=== PATIENT | male | born 1945 | race African-American/Black ===

== ENCOUNTER 2017-01-23 12:08 | Inpatient (IN) | payer MEDICARE, OTHER ==
[~2017-01-23] VITALS: Ht 185.4 cm; Wt 138.5 kg
[~2017-01-23 12:08] MED LIST: CALC1TAB PO; CELE200C PO; COLC0.6T34 PO; DIPH25CA58 PO; EZET10TA3 PO; FEBU80TA2 PO; GLIM1TAB2 PO; GLUC-12 PO; HYDR-2762 PO; LOSA100T2 PO; METO200T3 PO; MULT-246 PO; OMEG1CAP61 PO; OXYC30TA21 PO; TAMS0.4C2 PO; WARF5TAB PO
[2017-01-23] MEDS ORDERED: FENTANYL PF 100 MCG/2 ML VIAL. IV PRN ×2 (12:45→13:00)
[2017-01-23] MEDS ORDERED: NITROGLYCERIN SUBLINGUAL 0.4 MG BOTTLE OF 25. SL PRN ×3 (12:45→16:15)
--- NOTE | 2017-01-23 12:54 | EKG ---
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
[2017-01-23] MEDS ORDERED: ASPIRIN 81 MG TAB.CHEW PO ONE (13:00)
--- NOTE | 2017-01-23 13:00 | ED.ADGEN ---
Adult General Chief Complaint Chief Complaint: SHORTNESS OF BREATH HPI HPI Patient is a 71 year old man, history of CAD, hypertension, obesity, who presents to the emergency department with a report of an abnormal ECG after being sent from his primary care provider's office. Patient is able to provide a lot of information, states that he was being seen for atypical visit, and had EKG performed, and was told to go immediately to the emergency department for evaluation. Patient states that he has been expressing shortness of breath times time, but is feeling no more short of breath than usual, denies any palpitations, any chest pain, any nausea or vomiting, any weakness emesis or tingling, any recent travel or surgery, history of DVT or PE. He states that he believes he seen by cardiology here [facility], but cannot give additional information. Patient states that his shortness of breath comes it from time to time, but he cannot recall that is triggered by activity or any other inciting events. Noted a mildly tachycardic, heart rate 100-106, with occasional PVCs noted on his ECG. Review of Systems Review of Systems Constitutional: Denies fever or chills. [] Eyes: Denies change in visual acuity. [] HENT: Denies nasal congestion or sore throat. [] Respiratory: Denies cough, complaining of shortness of breath, occasionally. Cardiovascular: Denies chest pain or edema. [] GI: Denies abdominal pain, nausea, vomiting, bloody stools or diarrhea. [] : Denies dysuria. [] Musculoskeletal: Denies back pain or joint pain. [] Integument: Denies rash. [] Neurologic: Denies headache, focal weakness or sensory changes. [] Endocrine: Denies polyuria or polydipsia. [] Lymphatic: Denies swollen glands. [] Psychiatric: Denies depression or anxiety. [] Current Medications Current Medications Current Medications Medications (Trade) Dose Ordered Sig/Andre Start Time Stop Time Status Last Admin Dose Admin Aspirin (Children'S Aspirin) 324 mg 1X ONCE 01/23/17 13:00 01/23/17 13:01 DC 01/23/17 14:03 324 MG Fentanyl Citrate (Fentanyl 2ml Vial) 25 mcg PRN Q15MIN PRN 01/23/17 13:00 01/24/17 12:59 Nitroglycerin (Nitrostat) 0.4 mg PRN Q5MIN PRN 01/23/17 13:00 Allergies Allergies Allergies Coded Allergies Type Severity Reaction Last Updated Verified No Known Drug Allergies 06/05/15 No Physical Exam Physical Exam Constitutional: Well developed, well nourished, no acute distress, non-toxic appearance. [] HENT: Normocephalic, atraumatic, bilateral external ears normal, oropharynx moist, no oral exudates, nose normal. [] Eyes: PERRLA, EOMI, conjunctiva normal, no discharge. [] Neck: Normal range of motion, no tenderness, supple, no stridor. [] Cardiovascular:Heart rate regular rhythm, no murmur [] Lungs & Thorax: Bilateral breath sounds clear to auscultation [] Abdomen: Bowel sounds normal, soft, no tenderness, no masses, no pulsatile masses. [] Skin: Warm, dry, no erythema, no rash. [] Back: No tenderness, no CVA tenderness. [] Extremities: No tenderness, no cyanosis, no clubbing, ROM intact, no edema. [] Neurologic: Alert and oriented X 3, normal motor function, normal sensory function, no focal deficits noted. [] Psychologic: Affect normal, judgement normal, mood normal. [] Current Patient Data Vital Signs Vital Signs Date Time Temp Pulse Resp B/P Pulse Ox O2 Delivery O2 Flow Rate FiO2 01/23/17 12:50 98.4 108 23 167/114 97 Room Air 98.4 Lab Values Laboratory Tests Test 01/23/17 13:55 01/23/17 14:30 01/23/17 15:10 White Blood Count 6.6x10^3/uL (4.0-11.0) Red Blood Count 5.04x10^6/uL (4.30-5.70) Hemoglobin 13.4g/dL (13.0-17.5) Hematocrit 42.0% (39.0-53.0) Mean Corpuscular Volume 83fL (79-100) Mean Corpuscular Hemoglobin 27pg (25-35) Mean Corpuscular Hemoglobin Concent 32g/dL (31-37) Red Cell Distribution Width 16.7% (11.5-14.5) H Platelet Count 193x10^3/uL (140-400) Neutrophils (%) (Auto) 57% (31-73) Lymphocytes (%) (Auto) 31% (24-48) Monocytes (%) (Auto) 9% (0-9) Eosinophils (%) (Auto) 2% (0-3) Basophils (%) (Auto) 1% (0-3) Neutrophils # (Auto) 3.7x10^3uL (1.8-7.7) Lymphocytes # (Auto) 2.0x10^3/uL (1.0-4.8) Monocytes # (Auto) 0.6x10^3/uL (0.0-1.1) Eosinophils # (Auto) 0.1x10^3/uL (0.0-0.7) Basophils # (Auto) 0.1x10^3/uL (0.0-0.2) Platelet Estimate Adequate (ADEQUATE) Large Platelets Few Giant Platelets Few Prothrombin Time 13.4SEC (11.7-14.0) Prothrombin Time INR 1.1 (0.8-1.1) PTT 33SEC (24-38) D-Dimer (Treasure) 0.71ug/mlFEU (0.00-0.50) H Sodium Level 139mmol/L (136-145) Potassium Level 4.5mmol/L (3.5-5.1) Chloride Level 101mmol/L (98-107) Carbon Dioxide Level 28mmol/L (21-32) Anion Gap 10 (6-14) Blood Urea Nitrogen 13mg/dL (8-26) Creatinine 1.0mg/dL (0.7-1.3) Estimated GFR (Cockcroft-Gault) 89.6 BUN/Creatinine Ratio 13 (6-20) Glucose Level 125mg/dL (70-99) H Calcium Level 10.3mg/dL (8.5-10.1) H Total Bilirubin 0.6mg/dL (0.2-1.0) Aspartate Amino Transferase (AST) 55U/L (15-37) H Alanine Aminotransferase (ALT) 102U/L (16-63) H Alkaline Phosphatase 82U/L (46-116) Troponin I Quantitative < 0.017ng/mL (0.000-0.055) LU-Ooj-B-Type Natriuretic Peptide 21pg/mL (0-124) Total Protein 8.4g/dL (6.4-8.2) H Albumin 4.1g/dL (3.4-5.0) Albumin/Globulin Ratio 1.0 (1.0-1.7) Lipase 115U/L (73-393) Urine Collection Type Unknown Urine Color Yellow Urine Clarity Clear Urine pH 8.0 Urine Specific [place] 1.015 Urine Protein Negativemg/dL (NEG-TRACE) Urine Glucose (UA) Negativemg/dL (NEG) Urine Ketones (Stick) Negativemg/dL (NEG) Urine Blood Negative (NEG) Urine Nitrite Negative (NEG) Urine Bilirubin Negative (NEG) Urine Urobilinogen Dipstick 0.2mg/dL (0.2 mg/dL) Urine Leukocyte Esterase Negative (NEG) Urine RBC Occ/HPF (0-2) Urine WBC 0/HPF (0-4) Urine Squamous Epithelial Cells Few/LPF Urine Bacteria 0/HPF (0-FEW) Laboratory Tests 01/23/17 13:55 Laboratory Tests 01/23/17 14:30 EKG EKG EC: Office ECG: Heart rate 95 beats minute, sinus rhythm, QTC of 407, [place] of 198, QRS of 102, left axis deviation, moderate baseline artifact noted with poor baseline, patient noted to have occasional PVCs, with possible [address] elevation in lead V2, difficult to interpret beyond that secondary to lack of baseline continuity. Does not meet STEMI criteria. EC: Office ECG: Heart rate 103 bpm, sinus tachycardia, QRS of 98, [place] of 196, QTC of 419, occasional PVCs noted, upright axis, again there is difficulty with interpretation secondary to poor baseline established, possibility of [address] elevation again noted in V2, with isolated, with contour abnormalities noted in the inferior leads. Abnormal ECG, does not meet STEMI criteria. As interpreted by me. EC: Emergency department ECG: Sinus tachycardia, heart rate 103 bpm, left axis deviation, occasional PVCs noted, contour normality is again noted in the anterior septal lead, QTC of 445, [place] 188, QR 76, contour abnormalities noted again in the inferior leads, abnormal ECG, does not meet STEMI criteria. He. [] Radiology/Procedures Radiology/Procedures [] [facility] [address] [place] [address] IMAGING REPORT Signed PATIENT: PRESTON MOLINA ACCOUNT: [id number] : 1945 LOCATION: ER AGE: 71 SEX: M EXAM STATUS: REG ER ORD. PHYSICIAN: PERLA VOGT DO REASON: SOB PROCEDURE: PORTABLE CHEST 1V Portable chest, 01/23/2017: History: Palpitations, diabetes Comparison is made to a study from 05/21/2015. The heart size and pulmonary vascularity are normal. There is tortuosity and calcific plaquing of the thoracic aorta. No pulmonary infiltrates are seen. There is no evidence of pleural fluid. IMPRESSION: No acute cardiopulmonary abnormality is detected. DICTATED and SIGNED BY: KIRILL SHARMA MD DATE: 01/23/17 1311 CC: PERLA VOGT DO; Ericka BLUM MD ~ Impressions: [facility] [address] [place] [address] IMAGING REPORT Signed PATIENT: PRESTON MOLINA ACCOUNT: [id number] : 1945 LOCATION: [address] [place] [address] AGE: 71 SEX: M EXAM STATUS: ADM IN ORD. PHYSICIAN: PERLA VOGT DO REASON: CP/tachcardia elevated ddimer/ r/o PE PROCEDURE: CTA CHEST PROCEDURE CTA chest with contrast HISTORY Tachycardia and elevated D-dimer TECHNIQUE Axial helical images of the chest obtained after administration of 75 cc IV Omni 300 contrast. Timing is appropriate for pulmonary artery evaluation. In addition thin cut axial images coronal and sagittal maximum intensity 3D projected imaging was performed.. FINDINGS The pulmonary vessels are well opacified without filling defects. The thoracic aorta appears normal. There is no lymphadenopathy. The lungs are clear. There are coronary artery calcifications. IMPRESSION 1. No acute findings. 2. No evidence of pulmonary embolism. 3. Normal thoracic aorta. 4. Coronary artery calcifications. PQRS Statement: One or more of the following individualized dose reduction techniques were utilized for this study: 1. Automated exposure control. 2. Adjustment of the mA and/or kV according to patient size. 3. Use of iterative reconstruction technique. Electronically signed by: Fox Price MD (Jan 23, 2017 17:42:06) DICTATED and SIGNED BY: FOX PRICE III, MD DATE: 01/23/17 1741 CC: PERLA VOGT DO; Ericka BLUM MD ~ Course & Med Decision Making Course & Med Decision Making Pertinent Labs and Imaging studies reviewed. (See chart for details) Additional information obtained from PEARL Nicole, who took report from office. Per report of nursing office, patient of a complaining of indigestion, and was diaphoretic at time of ECG being obtained, prompting the referral to the emergency department for additional evaluation. After my initial evaluation , the patient denied complaints, however when I discussed this again with him, he states that he may been experiencing some the symptoms at that time. He states however he is feeling fine now. Patient is mildly tachycardic, he denies any recent travel or surgery, history of DVT or PE. ECG showed some PVCs, abnormalities noted in the septal and inferior leads, but no evidence of an acute ST elevation NM or other acutely concerning findings. Initial troponin was negative. D-dimer was elevated, along with patient's tachycardia, and complaints, CT of the chest was obtained that did not reveal any evidence of PE or other concerning findings. I did discuss this with the patient, he is agreeable for admission to the hospital for further evaluation with cardiology, as he has not been seen by cardiology for about 2 years. He was previously seen by Dr. Ponce of cardiology. I discussed the above with Dr. Blum, the patient' s primary care provider, patient accepted his service as a full admission to the cardiac telemetry floor with plan as above. Bridge orders entered with consultation. Dragon Disclaimer Dragon Disclaimer This electronic medical record was generated, in whole or in part, using a voice recognition dictation system. Departure Impression: Primary Impression: Chest pain Disposition: ADMITTED INPATIENT Admitting Physician: Kari Blum Condition: IMPROVED PERLA VOGT DO Jan 23, 2017 13:00
--- NOTE | 2017-01-23 13:15 | RAD ---
Portable chest, 01/23/2017: History: Palpitations, diabetes Comparison is made to a study from 05/21/2015. The heart size and pulmonary vascularity are normal. There is tortuosity and calcific plaquing of the thoracic aorta. No pulmonary infiltrates are seen. There is no evidence of pleural fluid. IMPRESSION: No acute cardiopulmonary abnormality is detected.
[2017-01-23 14:06] LABS: BASO # 0.1 x10^3/uL (0.0-0.2); BASO % 1 % (0-3); EOS % 2 % (0-3); HEMOGLOBIN 13.4 g/dL (13.0-17.5); LYMPH % 31 % (24-48); MEAN CORPUSCULAR HEMOGLOBIN 27 pg (25-35); MEAN CORPUSCULAR HGB CONC 32 g/dL (31-37); MEAN CORPUSCULAR VOLUME 83 fL (79-100); MONO % 9 % (0-9); NEUT % 57 % (31-73); PLATELET COUNT 193 x10^3/uL (140-400); RED BLOOD COUNT 5.04 x10^6/uL (4.30-5.70); RED CELL DISTRIBUTION WIDTH 16.7 % (11.5-14.5); WHITE BLOOD COUNT 6.6 x10^3/uL (4.0-11.0)
[2017-01-23 14:17] LABS: INR 1.1 (0.8-1.1); PROTHROMBIN TIME PATIENT 13.4 SEC (11.7-14.0)
[2017-01-23 14:59] LABS: CALCIUM 10.3 mg/dL (8.5-10.1); GFR 89.6; POTASSIUM 4.5 mmol/L (3.5-5.1)
[2017-01-23 15:14] LABS: ALBUMIN 4.1 g/dL (3.4-5.0); TOTAL BILIRUBIN 0.6 mg/dL (0.2-1.0); TOTAL PROTEIN 8.4 g/dL (6.4-8.2)
[2017-01-23 15:26] LABS: BILIRUBIN,URINE NEGATIVE (NEG); GLUCOSE,URINE NEGATIVE (NEG); NITRITE,URINE NEGATIVE (NEG); PROTEIN,URINE NEGATIVE (NEG-TRACE); UROBILINOGEN,URINE 0.2 mg/dL (0.2 mg/dL)
[2017-01-23 15:40] LABS: BACTERIA,URINE 0 /HPF (0-FEW); RBC,URINE OCC /HPF (0-2); SQUAMOUS EPITHELIAL CELL,UR FEW /LPF; WBC,URINE 0 /HPF (0-4)
[2017-01-23] MEDS ORDERED: MORPHINE SULFATE 2 MG/ML DISP.SYRIN. IV PRN (16:15)
[2017-01-23] MEDS ORDERED: ACETAMINOPHEN 325 MG TABLET. PO PRN (16:15)
[2017-01-23] MEDS ORDERED: ONDANSETRON PF 4 MG/2 ML VIAL. IV PRN (16:15)
[2017-01-23] MEDS ORDERED: GLUC1CAP14 PO (16:44)
[2017-01-23] MEDS ORDERED: ASPI-482 PO (16:44)
[2017-01-23 16:45] VITALS: BP 136/85
[2017-01-23] MEDS ORDERED: METF500T4 PO (16:47)
[2017-01-23] MEDS ORDERED: ALLO300T PO (16:47)
[2017-01-23 16:58] LABS: PLT ESTIMATE ADEQUATE (ADEQUATE)
[2017-01-23] MEDS ORDERED: IV NORMAL SALINE 1000ML BAG 1,000 ML IV ONE (17:00)
[2017-01-23] MEDS ORDERED: CONTRAST GIVEN MC PRN (17:00)
[2017-01-23] MEDS ORDERED: IOHEXOL 300 MG/ML 75 ML VIAL IV ONE (17:00)
--- NOTE | 2017-01-23 17:43 | RAD ---
PROCEDURE CTA chest with contrast HISTORY Tachycardia and elevated D-dimer TECHNIQUE Axial helical images of the chest obtained after administration of 75 cc IV Omni 300 contrast. Timing is appropriate for pulmonary artery evaluation. In addition thin cut axial images coronal and sagittal maximum intensity 3D projected imaging was performed.. FINDINGS The pulmonary vessels are well opacified without filling defects. The thoracic aorta appears normal. There is no lymphadenopathy. The lungs are clear. There are coronary artery calcifications. IMPRESSION 1. No acute findings. 2. No evidence of pulmonary embolism. 3. Normal thoracic aorta. 4. Coronary artery calcifications. PQRS Statement: One or more of the following individualized dose reduction techniques were utilized for this study: 1. Automated exposure control. 2. Adjustment of the mA and/or kV according to patient size. 3. Use of iterative reconstruction technique. Electronically signed by: Jorge Cooper MD (Jan 23, 2017 17:42:06)
[2017-01-23] MEDS ORDERED: DIPHENHYDRAMINE HCL 25 MG CAPSULE PO PRN (19:00)
[2017-01-23] MEDS ORDERED: DEXTROSE 50% 25 GM / 50ML DISP.SYRIN. IV PRN (19:00)
[2017-01-23 19:35] VITALS: BP 144/82
[2017-01-23] MEDS: OXYCODONE IR 30 MG TABLET. PO PRN (20:31)
[2017-01-23] MEDS ORDERED: [UNRECOGNIZED DRUG - OTHER] PO SCH (21:00)
[2017-01-23 22:40] VITALS: BP 129/71
--- NOTE | 2017-01-24 01:40 | ACF ---
Admission Forms Criteria CARDIOLOGY GRG Clinical Indications for Admission to Inpatient Care ( Place 'X' for any and all applicable criteria): Hospital admission is needed for appropriate care of the patient because of ANY ONE of the following (1): [ ] I. Hemodynamic instability as indicated by ALL of the following (1)(2)(3) (4)(5) [ ]a) Vital signs or other findings not as expected for chronic patient condition or baseline [ ]b) Instability indicated by ANY ONE of the following: [ ]i) Hypotension [ ]ii) Symptomatic Tachycardia unresponsive to treatment ( e.g., analgesia, fluids, sedation as indicated) [ ]iii) Inadequate perfusion indicated by ANY ONE of the following: [ ] 1) Lactic acidosis (> 2 mmol/L) [ ] 2) New abnormal capillary refill (> 3 seconds) [ ] 3) Reduced urine output [ ] 4) New altered mental status [ ]iv) Orthostatic vital sign changes unresponsive to treatment (e.g., fluids) [ ]v) IV inotropic or vasopressor medication required to maintain adequate blood pressure or perfusion [ ] II. Severe heart failure as indicated by ANY ONE of the following(17)(18) [ ]a) Respiratory distress [ ]b) Hypotension [ ]c) Anasarca (refractory to outpatient therapy) [ ]d) Cardiac arrhythmias of immediate concern [ ]e) Myocardial ischemia [ ] III. Cardiac arrhythmias or findings of immediate concern indicated by ANY ONE of the following (19)(20): [ ] a) Heart rhythms that are inherently dangerous or unstable indicated by ANY ONE of the following (21)(22)(23): [ ] i) Resuscitated ventricular fibrillation or cardiac arrest [ ] ii) Ventricular escape rhythm [ ] iii) Sustained ventricular tachycardia (30 seconds or more of ventricular rhythm at greater than 100 beats per minute) [ ] iv) Nonsustained ventricular tachycardia and ANY ONE of the following: [ ] 1) Suspected cardiac ischemia as cause or consequence of ventricular tachycardia [ ] 2) In setting of acute myocarditis [ ] b) Unstable cardiac conduction defects indicated by ANY ONE of the following(23)(24)(25) [ ] i) Type II second-degree atrioventricular block [ ]ii) Third-degree atrioventricular block [ ]iii) New-onset left bundle branch block with suspected myocardial ischemia [ ]c) Any heart rhythm and ANY ONE of the following (21)(22)(26)(27) (28) [ ] i) Continuous long-term ECG monitoring needed (e.g., initiation of drug requiring monitoring for more than 24 hours) [ ] ii) Patient has automatic implanted cardioverter defibrillator that is repeatedly firing, malfunctioning, or in need of immediate adjustment of settings beyond the scope of ambulatory or observation care [ ]d) Heart rhythms of concern due to ANY ONE of the following: [ ] i) Hypotension [ ] ii) Respiratory distress [ ] iii) Association with other significant symptoms (e.g., bradycardia with syncope or ongoing dizziness, supraventricular tachycardia with chest pain (14)(15)(17) [ ] IV. Monitoring for cardiac contusion beyond the scope of observation care needed [A](30)(31)(32) [ ] V. Surgical or device complication (e.g., valve replacement complication , pacemaker dysfunction) (35)(41)(44)(45)(46) [ ] . Inpatient palliative care needed. [B](49) Also use Inpatient Palliative Care Criteria [ ] VII. Nonbacterial thrombotic (marantic) endocarditis (36)(43)(47)(48) [X] VIII. Cardiology condition, symptom, or finding for which emergency and observation care has failed or are not considered appropriate. [ ] IX. Acute valvular disease requiring inpatient as indicated by ANY ONE of the following (41) [ ]a) Acute valvular regurgitation (42) [ ]b) Noninfectious valvulitis (43) [ ]c) Obstructive valve thrombosis [ ]d) Paravalvular leak [ ]e) Other significant valvular disorder remaining after emergency or observation level of care (as appropriate) [ ]X. Pericardial disease requiring inpatient treatment as indicated by ANY ONE of the following (33)(34)(35)(36)(37) [ ]a) Suspected tamponade (38)(39)(40) [ ]b) Hemopericardium [ ]c) Other significant pericardial disorder remaining after emergency or observation level of care (as appropriate) [ ] XI. Cardiac ischemia beyond scope of emergency and observation care. [ ] XII. Hypertension requiring inpatient treatment as indicated by ANY ONE of the following (6)(7)(8) [ ]a) SBP greater than 220 mm Hg or DBP greater than 120 mmHg despite treatment [ ]b) SBP greater than 140 mm Hg or DBP greater than 100 mm Hg with evidence of acute end organ damage as indicated by ANY ONE of the following [ ] i) Encephalopathy [ ] ii) Acute renal failure as indicated by new onset of ANY ONE of the following (9)(10)(11)(12)(13) [ ]1) 3-fold rise in serum creatinine from baseline [ ]2) Serum creatinine greater than 4 mg/dL ( 354 micromoles/L) with acute rise greater than 0.5 mg/dL (44.2 micromoles/L) [ ]3) Reduction of more than 75% in estimated glomerular filtration rate from baseline [ ]4) Estimated glomerular filtration rate less than 35 mL/min/1.73m2 (0.59 mL/sec/1.73m2) in child up to 18 years of age [ ]5) Cessation of urine output indicated by ALL of the following [ ]A. Adequate volume status [ ]B. Inadequate urine output as indicated by ANY ONE of the following [ ]a. Urine output less than 0.3 mL/kg/hr for 24 hours [ ]b. Anuria (urine output less than 0.1 mL/kg/hr) for 12 hours [ ] iii) Aortic dissection [ ] iv) Myocardial Ischemia [ ] v) Left ventricular heart failure [ ]vi) Retinal Hemorrhage [ ]vii) Other significant finding [ ]c) Hypertension in child requiring inpatient treatment as indicated by ALL of the following(14)(15)(16) [ ] i) Outpatient treatment not effective, not available, or not appropriate [ ]ii) SBP or DBP greater than 95th percentile for age [ ]iii) Evidence of acute end organ damage as indicated by ANY ONE of the following [ ]1) Altered mental status [ ]2) Acute renal failure as indicated by new onset of ANY ONE of the following(9)(10)(11)(12)(13) [ ]A. 3-fold rise in serum creatinine from baseline [ ]B. Serum creatinine greater than 4 mg/dL (354 micromoles/L) with acute rise greater than 0.5 mg/dL (44.2 micromoles/L) [ ]C. Reduction of more than 75% in estimated glomerular filtration rate from baseline [ ]D. Estimated glomerular filtration rate less than 35 mL/min/1.73m2 (0.59 mL/sec/1.73m2) in child up to 18 years of age [ ]E. Cessation of urine output indicated by ALL of the following [ ]a. Adequate volume status [ ]b. Inadequate urine output as indicated by ANY ONE of the following [ ]i) Urine output less than 0.3 mL/kg/hr for 24 hours [ ]ii) Anuria ( urine output less than 0.1 mL/kg/hr) for 12 hours [ ]3) Severe headache [ ]4) Visual disturbance [ ]5) Retinal hemorrhage [ ]6) Other significant finding [ ]XIII. Complications of transplanted heart indicated by ANY ONE of the following(61): [ ]a) Acute graft rejection requiring inpatient management (eg, intravenous immunosuppression)(62)(63) [ ]b) Acute graft heart failure indicated by ANY ONE of the following(64): [ ]i) Hemodynamic instability [ ]ii) Cardiac arrhythmias of immediate concern [ ]iii) Pulmonary edema that is very severe (eg, mechanical ventilation needed, imminent or likely, need for 100% oxygen to keep oxygen saturation above 90%) [ ]iv) Pulmonary edema that is persistent as indicated by ALL of the following: [ ]1) New need for oxygen therapy to keep oxygen saturation above 90% (or increased FiO2 need from baseline) [ ]2) Has not improved sufficiently with emergency department or observation care IV diuretics or other heart failure treatments[E] [ ]v) Altered mental status that is severe or persistent [ ]vi) Increased creatinine (new on laboratory test) with reduction of more than 50% in estimated glomerular filtration rate from baseline [ ]vii) Progressively (ongoing) rising creatinine (known from past laboratory test) with reduction of more than 25% in estimated glomerular filtration rate from baseline [ ]viii) Acute renal failure [ ]ix) Acute peripheral ischemia (eg, examination shows pulseless, cool, mottled, or cyanotic extremity) [ ]x) Pulmonary artery catheter monitoring needed [ ]xi) Other sign or symptom of heart failure requiring inpatient treatment (ie, too severe or not responsive to outpatient and observation care treatment) [ ]c) Infection requiring inpatient management (eg, Hemodynamic instability, need for intravenous antimicrobial treatment)(66)(67)(68)(69)(70) [ ]d) Cardiac allograft vasculopathy requiring inpatient management ( eg evidence of cardiac ischemia)(71) [ ]e) Other complication of transplanted heart (eg, stroke, severe pulmonary hypertension, severe valvular dysfunction) requiring inpatient management(72) The original [facility] content created by [facility] has been revised. The portions of the content which have been revised are identified through the use of italic text or in bold, and [facility] has neither reviewed nor approved the modified material. All other unmodified content is copyright [facility]. Please see references footnoted in the original [facility] edition 2016 Admission Criteria Met?: Yes LILIANA MORALEZ Jan 24, 2017 01:40
[2017-01-24 02:59] VITALS: BP 142/85
[2017-01-24] MEDS: OXYCODONE IR 30 MG TABLET. PO PRN ×3 (03:14→23:04)
[2017-01-24 06:15] LABS: BASO % 0 % (0-3); EOS % 3 % (0-3); HEMATOCRIT 37.2 % (39.0-53.0); LYMPH # 2.3 x10^3/uL (1.0-4.8); LYMPH % 33 % (24-48); MEAN CORPUSCULAR HEMOGLOBIN 26 pg (25-35); MEAN CORPUSCULAR HGB CONC 32 g/dL (31-37); MEAN CORPUSCULAR VOLUME 82 fL (79-100); MONO % 14 % (0-9); NEUT % 50 % (31-73); PLATELET COUNT 150 x10^3/uL (140-400); RED BLOOD COUNT 4.56 x10^6/uL (4.30-5.70); RED CELL DISTRIBUTION WIDTH 16.5 % (11.5-14.5); WHITE BLOOD COUNT 7.2 x10^3/uL (4.0-11.0)
[2017-01-24 06:19] LABS: CALCIUM 9.3 mg/dL (8.5-10.1); GFR 89.6; POTASSIUM 4.3 mmol/L (3.5-5.1)
[2017-01-24 07:52] VITALS: BP 163/88
[2017-01-24] MEDS: INSULIN ASPART 300 UNITS/3 ML INSULN.PEN SQ SCH ×3 (08:00→17:00)
[2017-01-24] MEDS: ALLOPURINOL 300 MG TABLET. PO SCH (09:22)
[2017-01-24] MEDS: OMEGA-3 FATTY ACIDS/FISH OIL 1,000 MG CAPSULE. PO SCH (09:22)
[2017-01-24] MEDS: LOSARTAN POTASSIUM 50 MG TABLET. PO SCH (09:23)
[2017-01-24] MEDS: MULTIVITAMIN with MINERAL TABLET. PO SCH (09:23)
[2017-01-24] MEDS: CALCIUM CARB/VIT D3 500/200 TABLET PO SCH ×2 (09:23→18:35)
[2017-01-24] MEDS: ASPIRIN ENTERIC COATED 81 MG TABLET.DR. PO SCH (09:23)
--- NOTE | 2017-01-24 09:26 | PDOC2 ---
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 Reports no chest pain but noted with episodes of palpitations, no resting SOA but notable for decreased activity tolerance and PANTOJA with mild activity. He was seen at his PCPs office and has noted these changes with abnormal EKG prompting admission to [facility]. Currently he is doing well, no complaints. He is significant for CAD, HTN, HLP, and DM2. He has been complaint with his medications. PAST MEDICAL HISTORY Cardiovascular: CAD, HTN, Hyperlipidemia Pulmonary: No pertinent hx CENTRAL NERVOUS SYSTEM: Other (No pertinent history) GI: GERD Heme/Onc: No pertinent hx Hepatobiliary: No pertinent hx Psych: No pertinent hx Musculoskeletal: Osteoarthritis Rheumatologic: No pertinent hx Infectious disease: No pertinent hx ENT: No pertinent hx Renal/: Chronic renal insuff, Benign prostatic enlarg. Endocrine: Diabetes (2) Dermatology: No pertinent hx PAST SURGICAL HISTORY Past Surgical History: Cataract Removal, Total knee replacement (left 04/2016), Other (2006 PCI/stent to LAD) FAMILY HISTORY Family History: Heart Disease SOCIAL HISTORY Smoke: <1 pack per day ALCOHOL: none Drugs: None CURRENT MEDICATIONS CURRENT MEDICATIONS Current Medications Medications (Trade) Dose Ordered Sig/Andre Route PRN Reason Start Time Stop Time Status Last Admin Dose Admin Aspirin 324 mg 324 mg 1X ONCE PO 01/23/17 13:00 01/23/17 13:01 DC 01/23/17 14:03 Sodium Chloride (Iv Sodium Chloride 0.9% 1000ml Bag) 1,000 ml @ 125 mls/hr 1X ONCE IV 01/23/17 17:00 01/24/17 00:59 DC 01/23/17 18:46 Iohexol (Omnipaque 300 Mg/ml) 75 ml 1X ONCE IV 01/23/17 17:00 01/23/17 17:01 DC 01/23/17 17:20 Oxycodone HCl (Roxicodone) 30 mg PRN Q4HRS PRN PO PAIN 01/23/17 19:00 01/24/17 03:14 ALLERGIES ALLERGIES: Coded Allergies: No Known Drug Allergies (Unverified , 06/05/15) ROS Review of System 14 point ROS evaluated with pertinent positives noted per HPI PHYSICAL EXAM General: Alert, Oriented X3, Cooperative, No acute distress HEENT: Atraumatic, Mucous membr. moist/pink Lungs: Clear to auscultation, Normal air movement Heart: Regular rate, Normal S1, Normal S2, Other (2/6 systolic murmur to LLS border) Abdomen: Normal bowel sounds Extremities: No cyanosis, Other (1+ bilateral LE pitting edema) Skin: No breakdown, No significant lesion Neuro: Normal speech, Sensation intact Psych/Mental Status: Mental status NL, Mood NL MUSCULOSKELETAL: Osteoarthritic changes both hands VITALS VITALS Vital Signs Date Time Temp Pulse Resp B/P Pulse Ox O2 Delivery O2 Flow Rate FiO2 01/24/17 07:52 98.2 86 18 163/88 97 Room Air 98.2 LABS Lab: Laboratory Tests Test 01/23/17 13:55 01/23/17 14:30 01/23/17 15:10 01/23/17 21:13 White Blood Count 6.6x10^3/uL (4.0-11.0) Red Blood Count 5.04x10^6/uL (4.30-5.70) Hemoglobin 13.4g/dL (13.0-17.5) Hematocrit 42.0% (39.0-53.0) Mean Corpuscular Volume 83fL (79-100) Mean Corpuscular Hemoglobin 27pg (25-35) Mean Corpuscular Hemoglobin Concent 32g/dL (31-37) Red Cell Distribution Width 16.7% (11.5-14.5) Platelet Count 193x10^3/uL (140-400) Neutrophils (%) (Auto) 57% (31-73) Lymphocytes (%) (Auto) 31% (24-48) Monocytes (%) (Auto) 9% (0-9) Eosinophils (%) (Auto) 2% (0-3) Basophils (%) (Auto) 1% (0-3) Neutrophils # (Auto) 3.7x10^3uL (1.8-7.7) Lymphocytes # (Auto) 2.0x10^3/uL (1.0-4.8) Monocytes # (Auto) 0.6x10^3/uL (0.0-1.1) Eosinophils # (Auto) 0.1x10^3/uL (0.0-0.7) Basophils # (Auto) 0.1x10^3/uL (0.0-0.2) Platelet Estimate Adequate (ADEQUATE) Large Platelets Few Giant Platelets Few Prothrombin Time 13.4SEC (11.7-14.0) Prothromb Time International Ratio 1.1 (0.8-1.1) Activated Partial Thromboplast Time 33SEC (24-38) D-Dimer (Treasure) 0.71ug/mlFEU (0.00-0.50) Sodium Level 139mmol/L (136-145) Potassium Level 4.5mmol/L (3.5-5.1) Chloride Level 101mmol/L (98-107) Carbon Dioxide Level 28mmol/L (21-32) Anion Gap 10 (6-14) Blood Urea Nitrogen 13mg/dL (8-26) Creatinine 1.0mg/dL (0.7-1.3) Estimated GFR (Cockcroft-Gault) 89.6 BUN/Creatinine Ratio 13 (6-20) Glucose Level 125mg/dL (70-99) Calcium Level 10.3mg/dL (8.5-10.1) Total Bilirubin 0.6mg/dL (0.2-1.0) Aspartate Amino Transf (AST/SGOT) 55U/L (15-37) Alanine Aminotransferase (ALT/SGPT) 102U/L (16-63) Alkaline Phosphatase 82U/L (46-116) Troponin I Quantitative < 0.017ng/mL (0.000-0.055) SH-Caw-G-Type Natriuretic Peptide 21pg/mL (0-124) Total Protein 8.4g/dL (6.4-8.2) Albumin 4.1g/dL (3.4-5.0) Albumin/Globulin Ratio 1.0 (1.0-1.7) Lipase 115U/L (73-393) Urine Collection Type Unknown Urine Color Yellow Urine Clarity Clear Urine pH 8.0 Urine Specific [place] 1.015 Urine Protein Negativemg/dL (NEG-TRACE) Urine Glucose (UA) Negativemg/dL (NEG) Urine Ketones (Stick) Negativemg/dL (NEG) Urine Blood Negative (NEG) Urine Nitrite Negative (NEG) Urine Bilirubin Negative (NEG) Urine Urobilinogen Dipstick 0.2mg/dL (0.2 mg/dL) Urine Leukocyte Esterase Negative (NEG) Urine RBC Occ/HPF (0-2) Urine WBC 0/HPF (0-4) Urine Squamous Epithelial Cells Few/LPF Urine Bacteria 0/HPF (0-FEW) Glucose (Fingerstick) 125mg/dL (70-99) Test 01/23/17 21:45 01/24/17 05:00 01/24/17 08:20 Troponin I Quantitative < 0.017ng/mL (0.000-0.055) < 0.017ng/mL (0.000-0.055) White Blood Count 7.2x10^3/uL (4.0-11.0) Red Blood Count 4.56x10^6/uL (4.30-5.70) Hemoglobin 12.0g/dL (13.0-17.5) Hematocrit 37.2% (39.0-53.0) Mean Corpuscular Volume 82fL (79-100) Mean Corpuscular Hemoglobin 26pg (25-35) Mean Corpuscular Hemoglobin Concent 32g/dL (31-37) Red Cell Distribution Width 16.5% (11.5-14.5) Platelet Count 150x10^3/uL (140-400) Neutrophils (%) (Auto) 50% (31-73) Lymphocytes (%) (Auto) 33% (24-48) Monocytes (%) (Auto) 14% (0-9) Eosinophils (%) (Auto) 3% (0-3) Basophils (%) (Auto) 0% (0-3) Neutrophils # (Auto) 3.6x10^3uL (1.8-7.7) Lymphocytes # (Auto) 2.3x10^3/uL (1.0-4.8) Monocytes # (Auto) 1.0x10^3/uL (0.0-1.1) Eosinophils # (Auto) 0.2x10^3/uL (0.0-0.7) Basophils # (Auto) 0.0x10^3/uL (0.0-0.2) Sodium Level 141mmol/L (136-145) Potassium Level 4.3mmol/L (3.5-5.1) Chloride Level 106mmol/L (98-107) Carbon Dioxide Level 28mmol/L (21-32) Anion Gap 7 (6-14) Blood Urea Nitrogen 13mg/dL (8-26) Creatinine 1.0mg/dL (0.7-1.3) Estimated GFR (Cockcroft-Gault) 89.6 Glucose Level 127mg/dL (70-99) Calcium Level 9.3mg/dL (8.5-10.1) Glucose (Fingerstick) 112mg/dL (70-99) ASSESSMENT/PLAN ASSESSMENT/PLAN 1. Dyspnea/fatigue: no CP. Troponin series normal with EKG SR no significant changes by comparison. 2. CAD: PCI/stent to LAD 2006 3. HTN: labile 4. HLP 5. DM2 6. Tobaccoism 7. CKD3 8. Mild transaminitis: possible GONSALES 9. Morbid obesity Recommendations 1. TTE tomorrow. 2 day MPI to completely rule out ischemic etiology 2. TSH, lipid panel 3. Continue with secondary prevention. ASA. 4. Will consider adding BB to regimen after tests completion. 5. Noted with zetia home us and fish oil. Will consider for statin per lipid level. Problems: ILSA ALVAREZ MD 01/24/17 1522: CARDIAC CONSULT ALLERGIES ALLERGIES: Coded Allergies: No Known Drug Allergies (Unverified , 06/05/15) ASSESSMENT/PLAN ASSESSMENT/PLAN Patient seen and examined. Agree with GATE ATTENDANT's assessment and plan. Patient admitted with progressive dyspnea on exertion. Myocardial infarction ruled out and there is no clinical evidence for congestive heart failure. We will obtain 2-D echo to assess LV systolic function and Lexiscan nuclear stress test to rule out ischemia in lieu of his history of coronary artery disease. Thank you for your consultation. Problems: BROOKLYNN MALAVE APRN Jan 24, 2017 09:26 ILSA ALVAREZ MD Jan 24, 2017 15:22
[2017-01-24 09:52] LABS: CHOLESTEROL/HDL RATIO 4.5
[2017-01-24 11:02] VITALS: BP 151/77
--- NOTE | 2017-01-24 12:11 | PDOC ---
PROGRESS NOTES Subjective Subjective Patient denies any chest pain, does admit to PANTOJA and occasional palpitations. Objective Objective Vital Signs Date Time Temp Pulse Resp B/P Pulse Ox O2 Delivery O2 Flow Rate FiO2 01/24/17 11:02 99.0 100 20 151/77 95 Room Air 99.0 Intake and Output 01/24/17 07:00 Intake Total 200 ml Output Total 175 ml Balance 25 ml Intake Oral 200 ml Output Urine Total 175 ml # Voids 1 Physical Exam Abdomen: Normal bowel sounds, Soft, No tenderness Heart: Regular rate, Other (II/ systolic murmur) Extremities: No edema General: Alert, Oriented X3, No acute distress Lungs: Clear to auscultation Assessment Assessment Problems Medical Problems: (1) Chest pain Status: Acute Plan Plan of Care 1. Atypical chest pain with history of CAD - Troponins are negative. Cardiology plans 2 day stress test. In sinus on Telemetry with occasional tachycardia. Continue to monitor. 2. HTN - continue home meds. 3. DM2 - home meds on hold, continue SS insulin. 4. Tobaccoism - patient states he only smokes a few cigarettes daily. Requests nicotine patch and Mucinex. CXR clear. 5. chronic back and joint pain - stable, continue his usual po med for this. Comment Review of Relevant I have reviewed the following items faith (where applicable) has been applied. Labs Laboratory Tests Test 01/23/17 13:55 01/23/17 14:30 01/23/17 15:10 01/23/17 21:13 White Blood Count 6.6x10^3/uL (4.0-11.0) Red Blood Count 5.04x10^6/uL (4.30-5.70) Hemoglobin 13.4g/dL (13.0-17.5) Hematocrit 42.0% (39.0-53.0) Mean Corpuscular Volume 83fL (79-100) Mean Corpuscular Hemoglobin 27pg (25-35) Mean Corpuscular Hemoglobin Concent 32g/dL (31-37) Red Cell Distribution Width 16.7% (11.5-14.5) Platelet Count 193x10^3/uL (140-400) Neutrophils (%) (Auto) 57% (31-73) Lymphocytes (%) (Auto) 31% (24-48) Monocytes (%) (Auto) 9% (0-9) Eosinophils (%) (Auto) 2% (0-3) Basophils (%) (Auto) 1% (0-3) Neutrophils # (Auto) 3.7x10^3uL (1.8-7.7) Lymphocytes # (Auto) 2.0x10^3/uL (1.0-4.8) Monocytes # (Auto) 0.6x10^3/uL (0.0-1.1) Eosinophils # (Auto) 0.1x10^3/uL (0.0-0.7) Basophils # (Auto) 0.1x10^3/uL (0.0-0.2) Platelet Estimate Adequate (ADEQUATE) Large Platelets Few Giant Platelets Few Prothrombin Time 13.4SEC (11.7-14.0) Prothromb Time International Ratio 1.1 (0.8-1.1) Activated Partial Thromboplast Time 33SEC (24-38) D-Dimer (Treasure) 0.71ug/mlFEU (0.00-0.50) Sodium Level 139mmol/L (136-145) Potassium Level 4.5mmol/L (3.5-5.1) Chloride Level 101mmol/L (98-107) Carbon Dioxide Level 28mmol/L (21-32) Anion Gap 10 (6-14) Blood Urea Nitrogen 13mg/dL (8-26) Creatinine 1.0mg/dL (0.7-1.3) Estimated GFR (Cockcroft-Gault) 89.6 BUN/Creatinine Ratio 13 (6-20) Glucose Level 125mg/dL (70-99) Calcium Level 10.3mg/dL (8.5-10.1) Total Bilirubin 0.6mg/dL (0.2-1.0) Aspartate Amino Transf (AST/SGOT) 55U/L (15-37) Alanine Aminotransferase (ALT/SGPT) 102U/L (16-63) Alkaline Phosphatase 82U/L (46-116) Troponin I Quantitative < 0.017ng/mL (0.000-0.055) SZ-Mjo-T-Type Natriuretic Peptide 21pg/mL (0-124) Total Protein 8.4g/dL (6.4-8.2) Albumin 4.1g/dL (3.4-5.0) Albumin/Globulin Ratio 1.0 (1.0-1.7) Lipase 115U/L (73-393) Urine Collection Type Unknown Urine Color Yellow Urine Clarity Clear Urine pH 8.0 Urine Specific [place] 1.015 Urine Protein Negativemg/dL (NEG-TRACE) Urine Glucose (UA) Negativemg/dL (NEG) Urine Ketones (Stick) Negativemg/dL (NEG) Urine Blood Negative (NEG) Urine Nitrite Negative (NEG) Urine Bilirubin Negative (NEG) Urine Urobilinogen Dipstick 0.2mg/dL (0.2 mg/dL) Urine Leukocyte Esterase Negative (NEG) Urine RBC Occ/HPF (0-2) Urine WBC 0/HPF (0-4) Urine Squamous Epithelial Cells Few/LPF Urine Bacteria 0/HPF (0-FEW) Glucose (Fingerstick) 125mg/dL (70-99) Test 01/23/17 21:45 01/24/17 05:00 01/24/17 08:20 01/24/17 11:57 Troponin I Quantitative < 0.017ng/mL (0.000-0.055) < 0.017ng/mL (0.000-0.055) White Blood Count 7.2x10^3/uL (4.0-11.0) Red Blood Count 4.56x10^6/uL (4.30-5.70) Hemoglobin 12.0g/dL (13.0-17.5) Hematocrit 37.2% (39.0-53.0) Mean Corpuscular Volume 82fL (79-100) Mean Corpuscular Hemoglobin 26pg (25-35) Mean Corpuscular Hemoglobin Concent 32g/dL (31-37) Red Cell Distribution Width 16.5% (11.5-14.5) Platelet Count 150x10^3/uL (140-400) Neutrophils (%) (Auto) 50% (31-73) Lymphocytes (%) (Auto) 33% (24-48) Monocytes (%) (Auto) 14% (0-9) Eosinophils (%) (Auto) 3% (0-3) Basophils (%) (Auto) 0% (0-3) Neutrophils # (Auto) 3.6x10^3uL (1.8-7.7) Lymphocytes # (Auto) 2.3x10^3/uL (1.0-4.8) Monocytes # (Auto) 1.0x10^3/uL (0.0-1.1) Eosinophils # (Auto) 0.2x10^3/uL (0.0-0.7) Basophils # (Auto) 0.0x10^3/uL (0.0-0.2) Sodium Level 141mmol/L (136-145) Potassium Level 4.3mmol/L (3.5-5.1) Chloride Level 106mmol/L (98-107) Carbon Dioxide Level 28mmol/L (21-32) Anion Gap 7 (6-14) Blood Urea Nitrogen 13mg/dL (8-26) Creatinine 1.0mg/dL (0.7-1.3) Estimated GFR (Cockcroft-Gault) 89.6 Glucose Level 127mg/dL (70-99) Calcium Level 9.3mg/dL (8.5-10.1) Triglycerides Level 60mg/dL (0-150) Cholesterol Level 192mg/dL (0-200) LDL Cholesterol, Calculated 137mg/dL (0-100) VLDL Cholesterol, Calculated 12mg/dL (0-40) HDL Cholesterol 43mg/dL (40-60) Cholesterol/HDL Ratio 4.5 Thyroid Stimulating Hormone (TSH) 2.820uIU/mL (0.358-3.74) Glucose (Fingerstick) 112mg/dL (70-99) 158mg/dL (70-99) Laboratory Tests Test 01/23/17 13:55 01/23/17 14:30 01/23/17 15:10 01/23/17 21:13 White Blood Count 6.6x10^3/uL (4.0-11.0) Red Blood Count 5.04x10^6/uL (4.30-5.70) Hemoglobin 13.4g/dL (13.0-17.5) Hematocrit 42.0% (39.0-53.0) Mean Corpuscular Volume 83fL (79-100) Mean Corpuscular Hemoglobin 27pg (25-35) Mean Corpuscular Hemoglobin Concent 32g/dL (31-37) Red Cell Distribution Width 16.7% (11.5-14.5) Platelet Count 193x10^3/uL (140-400) Neutrophils (%) (Auto) 57% (31-73) Lymphocytes (%) (Auto) 31% (24-48) Monocytes (%) (Auto) 9% (0-9) Eosinophils (%) (Auto) 2% (0-3) Basophils (%) (Auto) 1% (0-3) Neutrophils # (Auto) 3.7x10^3uL (1.8-7.7) Lymphocytes # (Auto) 2.0x10^3/uL (1.0-4.8) Monocytes # (Auto) 0.6x10^3/uL (0.0-1.1) Eosinophils # (Auto) 0.1x10^3/uL (0.0-0.7) Basophils # (Auto) 0.1x10^3/uL (0.0-0.2) Platelet Estimate Adequate (ADEQUATE) Large Platelets Few Giant Platelets Few Prothrombin Time 13.4SEC (11.7-14.0) Prothromb Time International Ratio 1.1 (0.8-1.1) Activated Partial Thromboplast Time 33SEC (24-38) D-Dimer (Treasure) 0.71ug/mlFEU (0.00-0.50) Sodium Level 139mmol/L (136-145) Potassium Level 4.5mmol/L (3.5-5.1) Chloride Level 101mmol/L (98-107) Carbon Dioxide Level 28mmol/L (21-32) Anion Gap 10 (6-14) Blood Urea Nitrogen 13mg/dL (8-26) Creatinine 1.0mg/dL (0.7-1.3) Estimated GFR (Cockcroft-Gault) 89.6 BUN/Creatinine Ratio 13 (6-20) Glucose Level 125mg/dL (70-99) Calcium Level 10.3mg/dL (8.5-10.1) Total Bilirubin 0.6mg/dL (0.2-1.0) Aspartate Amino Transf (AST/SGOT) 55U/L (15-37) Alanine Aminotransferase (ALT/SGPT) 102U/L (16-63) Alkaline Phosphatase 82U/L (46-116) Troponin I Quantitative < 0.017ng/mL (0.000-0.055) JN-Bez-F-Type Natriuretic Peptide 21pg/mL (0-124) Total Protein 8.4g/dL (6.4-8.2) Albumin 4.1g/dL (3.4-5.0) Albumin/Globulin Ratio 1.0 (1.0-1.7) Lipase 115U/L (73-393) Urine Collection Type Unknown Urine Color Yellow Urine Clarity Clear Urine pH 8.0 Urine Specific [place] 1.015 Urine Protein Negativemg/dL (NEG-TRACE) Urine Glucose (UA) Negativemg/dL (NEG) Urine Ketones (Stick) Negativemg/dL (NEG) Urine Blood Negative (NEG) Urine Nitrite Negative (NEG) Urine Bilirubin Negative (NEG) Urine Urobilinogen Dipstick 0.2mg/dL (0.2 mg/dL) Urine Leukocyte Esterase Negative (NEG) Urine RBC Occ/HPF (0-2) Urine WBC 0/HPF (0-4) Urine Squamous Epithelial Cells Few/LPF Urine Bacteria 0/HPF (0-FEW) Glucose (Fingerstick) 125mg/dL (70-99) Test 01/23/17 21:45 01/24/17 05:00 01/24/17 08:20 01/24/17 11:57 Troponin I Quantitative < 0.017ng/mL (0.000-0.055) < 0.017ng/mL (0.000-0.055) White Blood Count 7.2x10^3/uL (4.0-11.0) Red Blood Count 4.56x10^6/uL (4.30-5.70) Hemoglobin 12.0g/dL (13.0-17.5) Hematocrit 37.2% (39.0-53.0) Mean Corpuscular Volume 82fL (79-100) Mean Corpuscular Hemoglobin 26pg (25-35) Mean Corpuscular Hemoglobin Concent 32g/dL (31-37) Red Cell Distribution Width 16.5% (11.5-14.5) Platelet Count 150x10^3/uL (140-400) Neutrophils (%) (Auto) 50% (31-73) Lymphocytes (%) (Auto) 33% (24-48) Monocytes (%) (Auto) 14% (0-9) Eosinophils (%) (Auto) 3% (0-3) Basophils (%) (Auto) 0% (0-3) Neutrophils # (Auto) 3.6x10^3uL (1.8-7.7) Lymphocytes # (Auto) 2.3x10^3/uL (1.0-4.8) Monocytes # (Auto) 1.0x10^3/uL (0.0-1.1) Eosinophils # (Auto) 0.2x10^3/uL (0.0-0.7) Basophils # (Auto) 0.0x10^3/uL (0.0-0.2) Sodium Level 141mmol/L (136-145) Potassium Level 4.3mmol/L (3.5-5.1) Chloride Level 106mmol/L (98-107) Carbon Dioxide Level 28mmol/L (21-32) Anion Gap 7 (6-14) Blood Urea Nitrogen 13mg/dL (8-26) Creatinine 1.0mg/dL (0.7-1.3) Estimated GFR (Cockcroft-Gault) 89.6 Glucose Level 127mg/dL (70-99) Calcium Level 9.3mg/dL (8.5-10.1) Triglycerides Level 60mg/dL (0-150) Cholesterol Level 192mg/dL (0-200) LDL Cholesterol, Calculated 137mg/dL (0-100) VLDL Cholesterol, Calculated 12mg/dL (0-40) HDL Cholesterol 43mg/dL (40-60) Cholesterol/HDL Ratio 4.5 Thyroid Stimulating Hormone (TSH) 2.820uIU/mL (0.358-3.74) Glucose (Fingerstick) 112mg/dL (70-99) 158mg/dL (70-99) Medications Current Medications Nitroglycerin (Nitrostat) 0.4 mg PRN Q5MIN PRN SL CP RATING > 1/10; Start 01/23 at 12:45; Stop 01/24/17 at 12:44 Fentanyl Citrate (Fentanyl 2ml Vial) 25 mcg PRN Q15MIN PRN IV PAIN GREATER THAN 3/10; Start 01/23/17 at 12:45; Stop 01/24/17 at 12:44 Nitroglycerin (Nitrostat) 0.4 mg PRN Q5MIN PRN SL CHEST PAIN; Start 01/23/17 at 13:00 Aspirin (Children'S Aspirin) 324 mg 1X ONCE PO Last administered on 01/23/17 14:03; Start 01/23/17 at 13:00; Stop 01/23/17 at 13:01; Status DC Fentanyl Citrate (Fentanyl 2ml Vial) 25 mcg PRN Q15MIN PRN IV PAIN GREATER THAN 3/10; Start 01/23/17 at 13:00; Stop 01/24/17 at 12:59 Ondansetron HCl (Zofran) 4 mg PRN Q8HRS PRN IV NAUSEA/VOMITING; Start 01/23/17 at 16:15; Stop 01/24/17 at 16:14 Morphine Sulfate 2 mg PRN Q2HR PRN IV PAIN; Start 01/23/17 at 16:15; Stop 01/24 at 16:14 Acetaminophen (Tylenol) 650 mg PRN Q4HRS PRN PO FEVER; Start 01/23/17 at 16:15 ; Stop 01/24/17 at 16:14 Nitroglycerin 0.4 mg 0.4 mg PRN Q5MIN PRN SL CHEST PAIN; Start 01/23/17 at 16: 15; Stop 01/24/17 at 16:14 Sodium Chloride (Iv Sodium Chloride 0.9% 1000ml Bag) 1,000 ml @ 125 mls/hr 1X ONCE IV Last administered on 01/23/17 18:46; Start 01/23/17 at 17:00; Stop at 00:59; Status DC Iohexol (Omnipaque 300 Mg/ml) 75 ml 1X ONCE IV Last administered on 01/23/17 17:20; Start 01/23/17 at 17:00; Stop 01/23/17 at 17:01; Status DC Info (Do NOT chart on this entry -- for MONITORING) 1 each PRN DAILY PRN MC SEE COMMENTS; Start 01/23/17 at 17:00; Stop 01/25/17 at 16:59 Allopurinol (Zyloprim) 300 mg DAILY PO Last administered on 01/24/17 09:22; Start 01/24/17 at 09:00 Aspirin (Ecotrin) 81 mg DAILY PO Last administered on 01/24/17 09:23; Start at 09:00 Diphenhydramine HCl (Benadryl) 25 mg PRN BID PRN PO ALLERGIES; Start 01/23/17 at 19:00 Oxycodone HCl (Roxicodone) 30 mg PRN Q4HRS PRN PO PAIN Last administered on 09:31; Start 01/23/17 at 19:00 Calcium/Vitamin D (Oscal D 500mg/ 200uts) 1 tab BIDWMEALS PO Last administered on 01/24/17 09:23; Start 01/24/17 at 08:00 Non-Formulary Medication 1 each BID PO ; Start 01/23/17 at 21:00; Status UNV Losartan Potassium (Cozaar) 100 mg DAILY PO Last administered on 01/24/17 09: 23; Start 01/24/17 at 09:00 Multivitamins/ Calcium (Thera M Plus) 1 tab DAILY PO Last administered on 09:23; Start 01/24/17 at 09:00 Fish Oil (Fish Oil) 1,000 mg DAILY PO Last administered on 01/24/17 09:22; Start 01/24/17 at 09:00 Insulin Aspart (Novolog) 0-7 UNITS TIDWMEALS SQ ; Start 01/24/17 at 08:00 Dextrose 12.5 gm PRN Q15MIN PRN IV SEE COMMENTS; Start 01/23/17 at 19:00 Atorvastatin Calcium (Lipitor) 20 mg QHS PO ; Start 01/24/17 at 21:00 Active Scripts Active Reported Allopurinol 300 Mg Tablet 1 Tab PO DAILY Metformin Hcl 500 Mg Tablet 1 Tab PO DAILY Aspir 81 (Aspirin) 81 Mg Tablet.dr 1 Tab PO DAILY Glucosamine 1,500 Complex Cp (Gluc Adorno/Chondro Adorno A/Vit C/Mn) 1 Each Capsule 1 Each PO BID Glimepiride 1 Mg Tablet 1 Mg PO DAILY LAST DOSE GIVEN: DATE:06-07-15 TIME:9:00 a.m. NEXT DOSE DUE: DATE:06-08-15 TIME:9:00 a.m. Benadryl (Diphenhydramine Hcl) 25 Mg Capsule 25 Mg PO PRN BID PRN LAST DOSE GIVEN: DATE:06-06-15 TIME:10:40 a.m. NEXT DOSE DUE: DATE:06-07-15 TIME:any time as needed for allergies Fish Oil 1,200 Mg Softgel ([place]-3S/Dha/Epa/Fish Oil) 1 Each Capsule 1 Each PO DAILY LAST DOSE GIVEN: DATE:06-07-15 TIME:9:00 a.m. NEXT DOSE DUE: DATE:06-08-15 TIME:9:00 a.m. Caltrate 600 + D Tablet (Calcium Carbonate/Vitamin D3) 1 Each Tablet 1 Each PO BID LAST DOSE GIVEN: DATE:06-07-15 TIME:9:00 a.m. NEXT DOSE DUE: DATE:06-08-15 TIME: 5:00 p.m. Multi-Vitamin Daily (Multivitamin) 1 Each Tablet 1 Each PO DAILY LAST DOSE GIVEN:06-07-15 DATE: 9:00 a.m. NEXT DOSE DUE: DATE:06-08-15 TIME:9:00 a.m. Roxicodone (Oxycodone Hcl) 30 Mg Tablet 30 Mg PO PRN Q4HRS PRN Not taken while in hosp. May resume at home as needed as directed for pain. Cozaar (Losartan Potassium) 100 Mg Tablet 100 Mg PO DAILY LAST DOSE GIVEN: DATE:06-07-15 TIME:9:00 a.m. NEXT DOSE DUE: DATE:06-08-15 TIME:9:00 a.m. Vitals/I & O Vital Sign - Last 24 Hours 01/23/17 01/23/17 01/23/17 01/23/17 12:50 16:45 19:35 19:45 Temp 98.4 97.6 98.5 98.4 97.6 98.5 Pulse 108 98 99 Resp 18 B/P 167/114 136/85 144/82 Pulse Ox 97 95 97 O2 Delivery Room Air Room Air Room Air Room Air 01/23/17 01/23/17 01/24/17 01/24/17 20:31 22:40 02:59 04:14 Temp 97.7 98.3 97.7 98.3 Pulse 86 83 Resp 16 18 B/P 129/71 142/85 Pulse Ox 93 96 O2 Delivery Room Air Room Air Room Air Room Air 01/24/17 01/24/17 01/24/17 01/24/17 07:52 09:23 09:31 11:02 Temp 98.2 99.0 98.2 99.0 Pulse 86 86 100 Resp 18 18 20 B/P 163/88 163/88 151/77 Pulse Ox 97 95 O2 Delivery Room Air Room Air Room Air Intake and Output 01/23/17 01/23/17 01/24/17 15:00 23:00 07:00 Intake Total 100 ml 100 ml Output Total 175 ml Balance 100 ml -75 ml JAY VALENTINO MD Jan 24, 2017 12:11
[2017-01-24] MEDS ORDERED: FAMOTIDINE 20 MG TABLET. PO PRN (12:15)
[2017-01-24] MEDS: GUAIFENESIN ER 600 MG TABLET.ER PO SCH ×2 (13:08→21:16)
[2017-01-24] MEDS: NICOTINE 7MG PATCH. TD SCH (13:08)
--- NOTE | 2017-01-24 13:22 | HP ---
ADMIT DATE: 01/23/2017 CHIEF COMPLAINT: Shortness of breath and palpitations. HISTORY OF PRESENT ILLNESS: The patient is a 71-year-old male with a history of coronary artery disease who was seen by Dr. Blum in our office on the day of admission. At that time, the patient reported he was having some unusual dyspnea and some palpitations. Dr. Blum did an EKG and the patient became quite short of breath and diaphoretic while lying down for the EKG. The EKG did not have significant ischemic change, but due to the patient's other symptoms, he was sent to the Emergency Room and admitted from there for further treatment. PAST MEDICAL HISTORY: Coronary artery disease, hypertension, diabetes mellitus type 2, chronic pain, gout, tobaccoism. PAST SURGICAL HISTORY: Left total knee replacement, hernia repair, cataract removal, coronary artery stent placement in 2006. ALLERGIES: The patient has no known drug allergies. HOME MEDICATIONS: Allopurinol 300 mg daily, aspirin 81 mg daily, calcium b.i.d., Benadryl p.r.n., glimepiride 1 mg daily, losartan 100 mg daily, metformin 500 mg daily, oxycodone 30 mg p.r.n. pain. FAMILY HISTORY: Noncontributory. SOCIAL HISTORY: The patient is and lives at home with his . He is not employed. He continues to smoke cigarettes, but states he only smokes a few cigarettes daily. REVIEW OF SYSTEMS: The patient denies fever or chills. He denies an unusual cough, but has noticed some dyspnea on exertion as in the HPI. He has not really had chest pain with his other symptoms. He denies abdominal pain, nausea or vomiting. He gets indigestion sometimes and has requested a medication to take for this while he is here. He denies lower extremity edema. Denies difficulty urinating. He has some chronic joint and back pain, which is fairly well controlled with his usual pain medication from Dr. Blum. PHYSICAL EXAMINATION: GENERAL: The patient is alert and oriented x 3, sitting at the bedside, in no acute distress. HEENT: PERRL, EOMI, sclerae clear. Oropharynx: Mucous membranes moist. NECK: Supple, without lymphadenopathy. CHEST: Clear to auscultation. CARDIOVASCULAR: Regular rhythm. 2/6 systolic murmur is present. ABDOMEN: Soft, nontender, normoactive bowel sounds are present. EXTREMITIES: Without edema. ASSESSMENT AND PLAN: 1. Atypical chest pain with history of coronary artery disease. Three troponins are within normal limits. Cardiology plans a 2-day stress test and this has been ordered. The patient is in sinus rhythm on telemetry, but does have occasional tachycardia. We will continue to monitor this. 2. Hypertension. Continue home medication. 3. Diabetes mellitus type 2. Home medication is on hold, sliding scale insulin will be used as needed. 4. Tobaccoism, the patient has requested a nicotine patch and this has been ordered for him. His chest x-ray on admission was clear. 5. Chronic back and joint pain. This is stable, continue his usual oral medication. JAY VALENTINO MD DR: BELEN/sandhya JOB#: [id number] / [id number] MARIA R
[2017-01-24 15:17] VITALS: BP 128/80
[2017-01-24 19:20] VITALS: BP 150/78
[2017-01-24] MEDS ORDERED: ATORVASTATIN CALCIUM 20 MG TABLET PO SCH (21:00)
[2017-01-24 23:45] VITALS: BP 125/67
[2017-01-25 03:00] VITALS: BP 145/72
[2017-01-25 07:46] VITALS: BP 136/79
[2017-01-25] MEDS: INSULIN ASPART 300 UNITS/3 ML INSULN.PEN SQ SCH ×3 (08:00→17:00)
[2017-01-25] MEDS: CALCIUM CARB/VIT D3 500/200 TABLET PO SCH ×2 (08:00→18:19)
[2017-01-25] MEDS ORDERED: REGADENOSON 0.4 MG/5 ML DISP.SYRIN. IV ONE (09:15)
[2017-01-25] MEDS: OXYCODONE IR 30 MG TABLET. PO PRN ×2 (10:57→18:20)
[2017-01-25] MEDS: NICOTINE 7MG PATCH. TD SCH (10:58)
--- NOTE | 2017-01-25 11:20 | PDOC ---
PROGRESS NOTES Subjective Subjective Patient denies chest pain. Breathing seems the same to him. Objective Objective Vital Signs Date Time Temp Pulse Resp B/P Pulse Ox O2 Delivery O2 Flow Rate FiO2 01/25/17 10:57 18 Room Air 01/25/17 07:46 98.3 81 136/79 95 98.3 Intake and Output 01/25/17 07:00 Intake Total 2300 ml Balance 2300 ml Intake Oral 2300 ml # Voids 4 Physical Exam Abdomen: Normal bowel sounds, Soft, No tenderness Heart: Regular rate Extremities: No edema General: Alert, Oriented X3, No acute distress Lungs: Clear to auscultation Assessment Assessment Problems Medical Problems: (1) Chest pain Status: Acute Plan Plan of Care 1. Atypical CP - no further symptoms. Completing 2-day MPI today. Will discharge home later today if Cardiology in agreement. 2. HTN - controlled, continue present meds. 3. DM2 - stable, resume his usual po meds at discharge. 4. chronic pain - stable, continue his usual po meds. 5. hyperlipidemia - lipids are above goal with hx of CAD. Patient reports that he used to take Zetia for his but hasn't taken in awhile, not sure why. Will resume this and follow as outpatient. Comment Review of Relevant I have reviewed the following items faith (where applicable) has been applied. Labs Laboratory Tests Test 01/23/17 13:55 01/23/17 14:30 01/23/17 15:10 01/23/17 21:00 White Blood Count 6.6x10^3/uL (4.0-11.0) Red Blood Count 5.04x10^6/uL (4.30-5.70) Hemoglobin 13.4g/dL (13.0-17.5) Hematocrit 42.0% (39.0-53.0) Mean Corpuscular Volume 83fL (79-100) Mean Corpuscular Hemoglobin 27pg (25-35) Mean Corpuscular Hemoglobin Concent 32g/dL (31-37) Red Cell Distribution Width 16.7% (11.5-14.5) Platelet Count 193x10^3/uL (140-400) Neutrophils (%) (Auto) 57% (31-73) Lymphocytes (%) (Auto) 31% (24-48) Monocytes (%) (Auto) 9% (0-9) Eosinophils (%) (Auto) 2% (0-3) Basophils (%) (Auto) 1% (0-3) Neutrophils # (Auto) 3.7x10^3uL (1.8-7.7) Lymphocytes # (Auto) 2.0x10^3/uL (1.0-4.8) Monocytes # (Auto) 0.6x10^3/uL (0.0-1.1) Eosinophils # (Auto) 0.1x10^3/uL (0.0-0.7) Basophils # (Auto) 0.1x10^3/uL (0.0-0.2) Platelet Estimate Adequate (ADEQUATE) Large Platelets Few Giant Platelets Few Prothrombin Time 13.4SEC (11.7-14.0) Prothromb Time International Ratio 1.1 (0.8-1.1) Activated Partial Thromboplast Time 33SEC (24-38) D-Dimer (Treasure) 0.71ug/mlFEU (0.00-0.50) Sodium Level 139mmol/L (136-145) Potassium Level 4.5mmol/L (3.5-5.1) Chloride Level 101mmol/L (98-107) Carbon Dioxide Level 28mmol/L (21-32) Anion Gap 10 (6-14) Blood Urea Nitrogen 13mg/dL (8-26) Creatinine 1.0mg/dL (0.7-1.3) Estimated GFR (Cockcroft-Gault) 89.6 BUN/Creatinine Ratio 13 (6-20) Glucose Level 125mg/dL (70-99) Calcium Level 10.3mg/dL (8.5-10.1) Total Bilirubin 0.6mg/dL (0.2-1.0) Aspartate Amino Transf (AST/SGOT) 55U/L (15-37) Alanine Aminotransferase (ALT/SGPT) 102U/L (16-63) Alkaline Phosphatase 82U/L (46-116) Troponin I Quantitative < 0.017ng/mL (0.000-0.055) PQ-Brg-A-Type Natriuretic Peptide 21pg/mL (0-124) Total Protein 8.4g/dL (6.4-8.2) Albumin 4.1g/dL (3.4-5.0) Albumin/Globulin Ratio 1.0 (1.0-1.7) Lipase 115U/L (73-393) Urine Collection Type Unknown Urine Color Yellow Urine Clarity Clear Urine pH 8.0 Urine Specific Hatley 1.015 Urine Protein Negativemg/dL (NEG-TRACE) Urine Glucose (UA) Negativemg/dL (NEG) Urine Ketones (Stick) Negativemg/dL (NEG) Urine Blood Negative (NEG) Urine Nitrite Negative (NEG) Urine Bilirubin Negative (NEG) Urine Urobilinogen Dipstick 0.2mg/dL (0.2 mg/dL) Urine Leukocyte Esterase Negative (NEG) Urine RBC Occ/HPF (0-2) Urine WBC 0/HPF (0-4) Urine Squamous Epithelial Cells Few/LPF Urine Bacteria 0/HPF (0-FEW) Hemoglobin A1c 7.1% (4.8-5.6) Test 01/23/17 21:13 01/23/17 21:45 01/24/17 05:00 01/24/17 08:20 Glucose (Fingerstick) 125mg/dL (70-99) 112mg/dL (70-99) Troponin I Quantitative < 0.017ng/mL (0.000-0.055) < 0.017ng/mL (0.000-0.055) White Blood Count 7.2x10^3/uL (4.0-11.0) Red Blood Count 4.56x10^6/uL (4.30-5.70) Hemoglobin 12.0g/dL (13.0-17.5) Hematocrit 37.2% (39.0-53.0) Mean Corpuscular Volume 82fL (79-100) Mean Corpuscular Hemoglobin 26pg (25-35) Mean Corpuscular Hemoglobin Concent 32g/dL (31-37) Red Cell Distribution Width 16.5% (11.5-14.5) Platelet Count 150x10^3/uL (140-400) Neutrophils (%) (Auto) 50% (31-73) Lymphocytes (%) (Auto) 33% (24-48) Monocytes (%) (Auto) 14% (0-9) Eosinophils (%) (Auto) 3% (0-3) Basophils (%) (Auto) 0% (0-3) Neutrophils # (Auto) 3.6x10^3uL (1.8-7.7) Lymphocytes # (Auto) 2.3x10^3/uL (1.0-4.8) Monocytes # (Auto) 1.0x10^3/uL (0.0-1.1) Eosinophils # (Auto) 0.2x10^3/uL (0.0-0.7) Basophils # (Auto) 0.0x10^3/uL (0.0-0.2) Sodium Level 141mmol/L (136-145) Potassium Level 4.3mmol/L (3.5-5.1) Chloride Level 106mmol/L (98-107) Carbon Dioxide Level 28mmol/L (21-32) Anion Gap 7 (6-14) Blood Urea Nitrogen 13mg/dL (8-26) Creatinine 1.0mg/dL (0.7-1.3) Estimated GFR (Cockcroft-Gault) 89.6 Glucose Level 127mg/dL (70-99) Calcium Level 9.3mg/dL (8.5-10.1) Triglycerides Level 60mg/dL (0-150) Cholesterol Level 192mg/dL (0-200) LDL Cholesterol, Calculated 137mg/dL (0-100) VLDL Cholesterol, Calculated 12mg/dL (0-40) HDL Cholesterol 43mg/dL (40-60) Cholesterol/HDL Ratio 4.5 Thyroid Stimulating Hormone (TSH) 2.820uIU/mL (0.358-3.74) Test 01/24/17 11:57 01/24/17 17:16 01/24/17 20:59 01/25/17 07:18 Glucose (Fingerstick) 158mg/dL (70-99) 132mg/dL (70-99) 169mg/dL (70-99) 111mg/dL (70-99) Laboratory Tests Test 01/24/17 11:57 01/24/17 17:16 01/24/17 20:59 01/25/17 07:18 Glucose (Fingerstick) 158mg/dL (70-99) 132mg/dL (70-99) 169mg/dL (70-99) 111mg/dL (70-99) Medications Current Medications Nitroglycerin (Nitrostat) 0.4 mg PRN Q5MIN PRN SL CP RATING > 1/10; Start 01/23 at 12:45; Stop 01/24/17 at 12:14; Status DC Fentanyl Citrate (Fentanyl 2ml Vial) 25 mcg PRN Q15MIN PRN IV PAIN GREATER THAN 3/10; Start 01/23/17 at 12:45; Stop 01/24/17 at 12:44; Status DC Nitroglycerin (Nitrostat) 0.4 mg PRN Q5MIN PRN SL CHEST PAIN; Start 01/23/17 at 13:00 Aspirin (Children'S Aspirin) 324 mg 1X ONCE PO Last administered on 01/23/17 14:03; Start 01/23/17 at 13:00; Stop 01/23/17 at 13:01; Status DC Fentanyl Citrate (Fentanyl 2ml Vial) 25 mcg PRN Q15MIN PRN IV PAIN GREATER THAN 3/10; Start 01/23/17 at 13:00; Stop 01/24/17 at 12:59; Status DC Ondansetron HCl (Zofran) 4 mg PRN Q8HRS PRN IV NAUSEA/VOMITING; Start 01/23/17 at 16:15; Stop 01/24/17 at 17:10; Status DC Morphine Sulfate 2 mg PRN Q2HR PRN IV PAIN; Start 01/23/17 at 16:15; Stop 01/24 at 17:10; Status DC Acetaminophen (Tylenol) 650 mg PRN Q4HRS PRN PO FEVER; Start 01/23/17 at 16:15 ; Stop 01/24/17 at 17:10; Status DC Nitroglycerin 0.4 mg 0.4 mg PRN Q5MIN PRN SL CHEST PAIN; Start 01/23/17 at 16: 15; Stop 01/24/17 at 17:10; Status DC Sodium Chloride (Iv Sodium Chloride 0.9% 1000ml Bag) 1,000 ml @ 125 mls/hr 1X ONCE IV Last administered on 01/23/17 18:46; Start 01/23/17 at 17:00; Stop at 00:59; Status DC Iohexol (Omnipaque 300 Mg/ml) 75 ml 1X ONCE IV Last administered on 01/23/17 17:20; Start 01/23/17 at 17:00; Stop 01/23/17 at 17:01; Status DC Info (Do NOT chart on this entry -- for MONITORING) 1 each PRN DAILY PRN MC SEE COMMENTS; Start 01/23/17 at 17:00; Stop 01/25/17 at 16:59 Allopurinol (Zyloprim) 300 mg DAILY PO Last administered on 01/24/17 09:22; Start 01/24/17 at 09:00 Aspirin (Ecotrin) 81 mg DAILY PO Last administered on 01/24/17 09:23; Start at 09:00 Diphenhydramine HCl (Benadryl) 25 mg PRN BID PRN PO ALLERGIES; Start 01/23/17 at 19:00 Oxycodone HCl (Roxicodone) 30 mg PRN Q4HRS PRN PO PAIN Last administered on 10:57; Start 01/23/17 at 19:00 Calcium/Vitamin D (Oscal D 500mg/ 200uts) 1 tab BIDWMEALS PO Last administered on 01/24/17 18:35; Start 01/24/17 at 08:00 Non-Formulary Medication 1 each BID PO ; Start 01/23/17 at 21:00; Status UNV Losartan Potassium (Cozaar) 100 mg DAILY PO Last administered on 01/24/17 09: 23; Start 01/24/17 at 09:00 Multivitamins/ Calcium (Thera M Plus) 1 tab DAILY PO Last administered on 09:23; Start 01/24/17 at 09:00 Fish Oil (Fish Oil) 1,000 mg DAILY PO Last administered on 01/24/17 09:22; Start 01/24/17 at 09:00 Insulin Aspart (Novolog) 0-7 UNITS TIDWMEALS SQ ; Start 01/24/17 at 08:00 Dextrose 12.5 gm PRN Q15MIN PRN IV SEE COMMENTS; Start 01/23/17 at 19:00 Atorvastatin Calcium (Lipitor) 20 mg QHS PO Last administered on 01/24/17 21: 16; Start 01/24/17 at 21:00 Nicotine (Nicoderm Cq 7mg) 1 patch DAILY TD Last administered on 01/25/17 10: 58; Start 01/24/17 at 12:15 Guaifenesin (Mucinex) 600 mg BID PO Last administered on 01/24/17 21:16; Start 01/24/17 at 12:45 Famotidine (Pepcid) 20 mg PRN BID PRN PO INDIGESTION; Start 01/24/17 at 12:15 Regadenoson (Lexiscan) 0.4 mg 1X ONCE IV Last administered on 01/25/17 10:09 ; Start 01/25/17 at 09:15; Stop 01/25/17 at 09:16; Status DC Active Scripts Active Reported Allopurinol 300 Mg Tablet 1 Tab PO DAILY Metformin Hcl 500 Mg Tablet 1 Tab PO DAILY Aspir 81 (Aspirin) 81 Mg Tablet.dr 1 Tab PO DAILY Glucosamine 1,500 Complex Cp (Gluc Adorno/Chondro Adorno A/Vit C/Mn) 1 Each Capsule 1 Each PO BID Glimepiride 1 Mg Tablet 1 Mg PO DAILY LAST DOSE GIVEN: DATE:06-07-15 TIME:9:00 a.m. NEXT DOSE DUE: DATE:06-08-15 TIME:9:00 a.m. Benadryl (Diphenhydramine Hcl) 25 Mg Capsule 25 Mg PO PRN BID PRN LAST DOSE GIVEN: DATE:06-06-15 TIME:10:40 a.m. NEXT DOSE DUE: DATE:06-07-15 TIME:any time as needed for allergies Fish Oil 1,200 Mg Softgel ([place]-3S/Dha/Epa/Fish Oil) 1 Each Capsule 1 Each PO DAILY LAST DOSE GIVEN: DATE:06-07-15 TIME:9:00 a.m. NEXT DOSE DUE: DATE:06-08-15 TIME:9:00 a.m. Caltrate 600 + D Tablet (Calcium Carbonate/Vitamin D3) 1 Each Tablet 1 Each PO BID LAST DOSE GIVEN: DATE:06-07-15 TIME:9:00 a.m. NEXT DOSE DUE: :06-08-15 TIME: 5:00 p.m. Multi-Vitamin Daily (Multivitamin) 1 Each Tablet 1 Each PO DAILY LAST DOSE GIVEN:06-07-15 DATE: 9:00 a.m. NEXT DOSE DUE: DATE:06-08-15 TIME:9:00 a.m. Roxicodone (Oxycodone Hcl) 30 Mg Tablet 30 Mg PO PRN Q4HRS PRN Not taken while in hosp. May resume at home as needed as directed for pain. Cozaar (Losartan Potassium) 100 Mg Tablet 100 Mg PO DAILY LAST DOSE GIVEN: DATE:06-07-15 TIME:9:00 a.m. NEXT DOSE DUE: DATE:06-08-15 TIME:9:00 a.m. Vitals/I & O Vital Sign - Last 24 Hours 01/24/17 01/24/17 01/24/17 01/24/17 15:17 19:20 20:00 23:04 Temp 97.9 98.5 97.9 98.5 Pulse 103 87 Resp 20 20 B/P 128/80 150/78 Pulse Ox 96 95 O2 Delivery Room Air Room Air Room Air Room Air 01/24/17 01/25/17 01/25/17 01/25/17 23:45 00:04 03:00 07:46 Temp 97.8 98.0 98.3 97.8 98.0 98.3 Pulse 87 76 81 Resp 20 20 18 B/P 125/67 145/72 136/79 Pulse Ox 97 96 95 O2 Delivery Room Air Room Air Room Air Room Air 01/25/17 01/25/17 08:00 10:57 Resp 18 O2 Delivery Room Air Room Air Intake and Output 01/24/17 01/24/17 01/25/17 15:00 23:00 07:00 Intake Total 500 ml 600 ml 1200 ml Balance 500 ml 600 ml 1200 ml JAY VALENTNIO MD Jan 25, 2017 11:20
[2017-01-25] MEDS ORDERED: EZET10TA3 PO (11:22)
[2017-01-25 11:38] VITALS: BP 143/69
[2017-01-25] MEDS: ASPIRIN ENTERIC COATED 81 MG TABLET.DR. PO SCH (11:55)
[2017-01-25] MEDS: MULTIVITAMIN with MINERAL TABLET. PO SCH (11:56)
[2017-01-25] MEDS: OMEGA-3 FATTY ACIDS/FISH OIL 1,000 MG CAPSULE. PO SCH (11:56)
[2017-01-25] MEDS: ALLOPURINOL 300 MG TABLET. PO SCH (11:56)
[2017-01-25] MEDS: LOSARTAN POTASSIUM 50 MG TABLET. PO SCH (11:56)
[2017-01-25] MEDS: GUAIFENESIN ER 600 MG TABLET.ER PO SCH ×2 (11:56→21:13)
[2017-01-25] MEDS ORDERED: EZETIMIBE 10 MG TABLET PO SCH (12:00)
[2017-01-25] MEDS: NICOTINE 14MG PATCH. TD SCH (13:58)
--- NOTE | 2017-01-25 14:58 | CARD ---
APPROVED REPORT EXAM: Two-dimensional and M-mode echocardiogram with Doppler and color Doppler. Other Information Quality : GoodHR: 86bpm Rhythm : NSR INDICATION CAD, Persistent dyspnea RISK FACTORS Hypertension Obesity 2D DIMENSIONS RVDd2.9 (2.9-3.5cm)Left Atrium(2D)3.7 (1.6-4.0cm) IVSd1.2 (0.7-1.1cm)Aortic Root(2D)2.8 (2.0-3.7cm) LVDd5.2 (3.9-5.9cm)LVOT Diameter2.6 (1.8-2.4cm) PWd1.2 (0.7-1.1cm)LVDs3.3 (2.5-4.0cm) FS (%) 37.7 %SV88.0 ml LVEF(%)67.4 (>50%) Aortic Valve AoV Peak Jaleel.161.3cm/sAoV VTI31.0cm AO Peak GR.10.4mmHgLVOT VTI 20.17cm AO Mean GR.5mmHg Mitral Valve MV E Pgsdluym02.4cm/sMV DECEL CTBM10vm MV A Zjnrsqoz85.7cm/sE/A Ratio1.2 MV A [id number] TDI Lateral E' P. V9.07cm/sMedial E' P. V7.72cm/s E/Lateral E'7.2E/Medial E'8.5 Pulmonary Vein S1 Xqrqjmah83.0cm/sS2 Nhdhohbo26.95cm/s D2 Fmcdcqra35.0cm/sPVa [id number] LEFT VENTRICLE The left ventricle is normal size. There is mild concentric left ventricular hypertrophy. The left ve ntricular systolic function is normal. The Ejection Fraction is 60-65%. There is normal LV segmental wall motion. Transmitral Doppler flow pattern is Grade I-abnormal relaxation pattern. RIGHT VENTRICLE The right ventricle is normal size. There is normal right ventricular wall thickness. The right ventr icular systolic function is normal. ATRIA The left atrium size is normal. The right atrium size is normal. The interatrial septum is intact wit h no evidence for an atrial septal defect or patent foramen ovale as noted on 2-D or Doppler imaging. AORTIC VALVE The aortic valve is sclerotic. Doppler and Color Flow revealed no significant aortic regurgitation. T here is no significant aortic valvular stenosis. MITRAL VALVE The mitral valve leaflets are thickened. There is no evidence of mitral valve prolapse. There is no m itral valve stenosis. Doppler and Color Flow revealed no mitral valve regurgitation noted. TRICUSPID VALVE The tricuspid valve is normal in structure and function. Doppler and Color Flow revealed no tricuspid valve regurgitation noted. PULMONIC VALVE The pulmonary valve is normal in structure and function. Doppler and Color Flow revealed no pulmonic valvular regurgitation. There is no pulmonic valvular stenosis. GREAT VESSELS The aortic root is normal in size. The ascending aorta is normal in size. The pulmonary artery is nor mal. The IVC is normal in size and collapses >50% with inspiration. PERICARDIAL EFFUSION There is no evidence of significant pericardial effusion. Critical Notification Critical Value: No <Conclusion> The left ventricular systolic function is normal. The Ejection Fraction is 60-65%. There is normal LV segmental wall motion. Transmitral Doppler flow pattern is Grade I-abnormal relaxation pattern. There is no evidence of significant pericardial effusion.
[2017-01-25 15:10] VITALS: BP 137/83
--- NOTE | 2017-01-25 16:06 | PDOC ---
PROGRESS NOTES Subjective Subjective Denied any chest pain or shortness of breath Objective Objective Vital Signs Date Time Temp Pulse Resp B/P Pulse Ox O2 Delivery O2 Flow Rate FiO2 01/25/17 15:10 98.1 79 20 137/83 99 Room Air 98.1 Intake and Output 01/25/17 07:00 Intake Total 2300 ml Balance 2300 ml Intake Oral 2300 ml # Voids 4 Physical Exam Abdomen: Normal bowel sounds, Soft, No tenderness Heart: Regular rate Extremities: No edema General: Alert, Oriented X3, No acute distress HEENT: Atraumatic, Mucous membr. moist/pink Lungs: Clear to auscultation Neuro: Normal speech, Sensation intact Psych/Mental Status: Mental status NL, Mood NL Skin: No breakdown, No significant lesion Assessment Assessment 1. CAD s/p PCI/stent to LAD 2006 presently complaining of chest pain and dyspnea on exertion. Myocardial infarction ruled out. 2-D echo showed normal LV function and Lexiscan nuclear stress test showed small ischemia with transient ischemic dilatation concerning for significant coronary artery disease. We will proceed with cardiac catheterization and possible angioplasty. 2. HTN: Controlled 3. HLP: On Zetia 4. DM2: Continue treatment per IM 5. Tobaccoism: Smoking cessation Plan Plan of Care Problems Medical Problems: (1) Chest pain Status: Acute Comment Review of Relevant I have reviewed the following items faith (where applicable) has been applied. Labs Laboratory Tests Test 01/24/17 17:16 01/24/17 20:59 01/25/17 07:18 01/25/17 11:18 Glucose (Fingerstick) 132mg/dL (70-99) 169mg/dL (70-99) 111mg/dL (70-99) 176mg/dL (70-99) Medications Current Medications Atorvastatin Calcium (Lipitor) 20 mg QHS PO Last administered on 01/24/17 21: 16; Start 01/24/17 at 21:00; Stop 01/25/17 at 11:18; Status DC EZETIMIBE (Zetia) 10 mg DAILY PO Last administered on 01/25/17 13:58; Start at 12:00 Nicotine (Nicoderm Cq 14mg) 1 patch DAILY TD Last administered on 01/25/17 13: 58; Start 01/25/17 at 12:00 Regadenoson (Lexiscan) 0.4 mg 1X ONCE IV Last administered on 01/25/17t 10:09 ; Start 01/25/17 at 09:15; Stop 01/25/17 at 09:16; Status DC Vitals/I & O Vital Sign - Last 24 Hours 01/24/17 01/24/17 01/24/17 01/24/17 19:20 20:00 23:04 23:45 Temp 98.5 97.8 98.5 97.8 Pulse 87 87 Resp 20 20 B/P 150/78 125/67 Pulse Ox 95 97 O2 Delivery Room Air Room Air Room Air Room Air 01/25/17 01/25/17 01/25/17 01/25/17 03:00 07:46 08:00 10:57 Temp 98.0 98.3 98.0 98.3 Pulse 76 81 Resp 20 18 18 B/P 145/72 136/79 Pulse Ox 96 95 O2 Delivery Room Air Room Air Room Air Room Air 01/25/17 01/25/17 01/25/17 01/25/17 11:38 11:56 11:57 15:10 Temp 97.5 98.1 97.5 98.1 Pulse 99 99 79 Resp 20 18 20 B/P 143/69 143/69 137/83 Pulse Ox 98 99 O2 Delivery Room Air Room Air Room Air Intake and Output 01/24/17 01/24/17 01/25/17 15:00 23:00 07:00 Intake Total 500 ml 600 ml 1200 ml Balance 500 ml 600 ml 1200 ml ILSA ALVAREZ MD Jan 25, 2017 16:06
[2017-01-25 19:52] VITALS: BP 154/76
[2017-01-25 23:09] VITALS: BP 136/78
[2017-01-26] VITALS (9 sets, daily range): BP systolic 140–177; BP diastolic 70–95
[2017-01-26] MEDS ORDERED: LIDOCAINE 2% 20 ML VIAL. ONE (06:59)
[2017-01-26] MEDS ORDERED: IOHEXOL 300 MG/ML 100ML VIAL. ONE (06:59)
[2017-01-26] MEDS: INSULIN ASPART 300 UNITS/3 ML INSULN.PEN SQ SCH ×3 (08:00→17:00)
--- NOTE | 2017-01-26 08:45 | PDOC ---
PROGRESS NOTES Subjective Subjective Patient reports losing his voice over the last day or so and has had increased sinus congestion and drainage. Denies palpitations, chest pain, or shortness of breath. 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 Labs Laboratory Tests Test 01/24/17 11:57 01/24/17 17:16 01/24/17 20:59 01/25/17 07:18 Glucose (Fingerstick) 158mg/dL (70-99) 132mg/dL (70-99) 169mg/dL (70-99) 111mg/dL (70-99) Test 01/25/17 11:18 01/25/17 16:51 01/25/17 20:56 Glucose (Fingerstick) 176mg/dL (70-99) 120mg/dL (70-99) 141mg/dL (70-99) Laboratory Tests Test 01/25/17 11:18 01/25/17 16:51 01/25/17 20:56 Glucose (Fingerstick) 176mg/dL (70-99) 120mg/dL (70-99) 141mg/dL (70-99) Medications Current Medications Nitroglycerin (Nitrostat) 0.4 mg PRN Q5MIN PRN SL CP RATING > 1/10; Start 01/23 at 12:45; Stop 01/24/17 at 12:14; Status DC Fentanyl Citrate (Fentanyl 2ml Vial) 25 mcg PRN Q15MIN PRN IV PAIN GREATER THAN 3/10; Start 01/23/17 at 12:45; Stop 01/24/17 at 12:44; Status DC Nitroglycerin (Nitrostat) 0.4 mg PRN Q5MIN PRN SL CHEST PAIN; Start 01/23/17 at 13:00 Aspirin (Children'S Aspirin) 324 mg 1X ONCE PO Last administered on 01/23/17 14:03; Start 01/23/17 at 13:00; Stop 01/23/17 at 13:01; Status DC Fentanyl Citrate (Fentanyl 2ml Vial) 25 mcg PRN Q15MIN PRN IV PAIN GREATER THAN 3/10; Start 01/23/17 at 13:00; Stop 01/24/17 at 12:59; Status DC Ondansetron HCl (Zofran) 4 mg PRN Q8HRS PRN IV NAUSEA/VOMITING; Start 01/23/17 at 16:15; Stop 01/24/17 at 17:10; Status DC Morphine Sulfate 2 mg PRN Q2HR PRN IV PAIN; Start 01/23/17 at 16:15; Stop 01/24 at 17:10; Status DC Acetaminophen (Tylenol) 650 mg PRN Q4HRS PRN PO FEVER; Start 01/23/17 at 16:15 ; Stop 01/24/17 at 17:10; Status DC Nitroglycerin 0.4 mg 0.4 mg PRN Q5MIN PRN SL CHEST PAIN; Start 01/23/17 at 16: 15; Stop 01/24/17 at 17:10; Status DC Sodium Chloride (Iv Sodium Chloride 0.9% 1000ml Bag) 1,000 ml @ 125 mls/hr 1X ONCE IV Last administered on 01/23/17 18:46; Start 01/23/17 at 17:00; Stop at 00:59; Status DC Iohexol (Omnipaque 300 Mg/ml) 75 ml 1X ONCE IV Last administered on 01/23/17 17:20; Start 01/23/17 at 17:00; Stop 01/23/17 at 17:01; Status DC Info (Do NOT chart on this entry -- for MONITORING) 1 each PRN DAILY PRN MC SEE COMMENTS; Start 01/23/17 at 17:00; Stop 01/25/17 at 16:59; Status DC Allopurinol (Zyloprim) 300 mg DAILY PO Last administered on 01/25/17 11:56; Start 01/24/17 at 09:00 Aspirin (Ecotrin) 81 mg DAILY PO Last administered on 01/25/17 11:55; Start at 09:00 Diphenhydramine HCl (Benadryl) 25 mg PRN BID PRN PO ALLERGIES; Start 01/23/17 at 19:00 Oxycodone HCl (Roxicodone) 30 mg PRN Q4HRS PRN PO PAIN Last administered on 18:20; Start 01/23/17 at 19:00 Calcium/Vitamin D (Oscal D 500mg/ 200uts) 1 tab BIDWMEALS PO Last administered on 01/25/17 18:19; Start 01/24/17 at 08:00 Non-Formulary Medication 1 each BID PO ; Start 01/23/17 at 21:00; Status UNV Losartan Potassium (Cozaar) 100 mg DAILY PO Last administered on 01/25/17 11: 56; Start 01/24/17 at 09:00 Multivitamins/ Calcium (Thera M Plus) 1 tab DAILY PO Last administered on 11:56; Start 01/24/17 at 09:00 Fish Oil (Fish Oil) 1,000 mg DAILY PO Last administered on 01/25/17 11:56; Start 01/24/17 at 09:00 Insulin Aspart (Novolog) 0-7 UNITS TIDWMEALS SQ ; Start 01/24/17 at 08:00 Dextrose 12.5 gm PRN Q15MIN PRN IV SEE COMMENTS; Start 01/23/17 at 19:00 Atorvastatin Calcium (Lipitor) 20 mg QHS PO Last administered on 01/24/17 21: 16; Start 01/24/17 at 21:00; Stop 01/25/17 at 11:18; Status DC Nicotine (Nicoderm Cq 7mg) 1 patch DAILY TD Last administered on 01/25/17 10: 58; Start 01/24/17 at 12:15; Stop 01/25/17 at 11:18; Status DC Guaifenesin (Mucinex) 600 mg BID PO Last administered on 01/25/17 21:13; Start 01/24/17 at 12:45 Famotidine (Pepcid) 20 mg PRN BID PRN PO INDIGESTION Last administered on 18:20; Start 01/24/17 at 12:15 Regadenoson (Lexiscan) 0.4 mg 1X ONCE IV Last administered on 01/25/17 10:09 ; Start 01/25/17 at 09:15; Stop 01/25/17 at 09:16; Status DC EZETIMIBE (Zetia) 10 mg DAILY PO Last administered on 01/25/17 13:58; Start at 12:00 Nicotine (Nicoderm Cq 14mg) 1 patch DAILY TD Last administered on 01/25/17 13: 58; Start 01/25/17 at 12:00 Iohexol 100 ml 100 ml STK-MED ONCE .ROUTE ; Start 01/26/17 at 06:59; Stop at 07:00; Status DC Heparin Sodium/ Sodium Chloride 1,000 ml @ As Directed STK-MED ONCE .ROUTE ; Start 01/26/17 at 06:59; Stop 01/26/17 at 07:00; Status DC Lidocaine HCl 20 ml STK-MED ONCE .ROUTE ; Start 01/26/17 at 06:59; Stop at 07:00; Status DC Active Scripts Active Reported Allopurinol 300 Mg Tablet 1 Tab PO DAILY Metformin Hcl 500 Mg Tablet 1 Tab PO DAILY Aspir 81 (Aspirin) 81 Mg Tablet.dr 1 Tab PO DAILY Glucosamine 1,500 Complex Cp (Gluc Adorno/Chondro Adorno A/Vit C/Mn) 1 Each Capsule 1 Each PO BID Glimepiride 1 Mg Tablet 1 Mg PO DAILY LAST DOSE GIVEN: DATE:06-07-15 TIME:9:00 a.m. NEXT DOSE DUE: DATE:06-08-15 TIME:9:00 a.m. Benadryl (Diphenhydramine Hcl) 25 Mg Capsule 25 Mg PO PRN BID PRN LAST DOSE GIVEN: DATE:06-06-15 TIME:10:40 a.m. NEXT DOSE DUE: DATE:06-07-15 TIME:any time as needed for allergies Fish Oil 1,200 Mg Softgel ([place]-3S/Dha/Epa/Fish Oil) 1 Each Capsule 1 Each PO DAILY LAST DOSE GIVEN: DATE:06-07-15 TIME:9:00 a.m. NEXT DOSE DUE: DATE:06-08-15 TIME:9:00 a.m. Caltrate 600 + D Tablet (Calcium Carbonate/Vitamin D3) 1 Each Tablet 1 Each PO BID LAST DOSE GIVEN: DATE:06-07-15 TIME:9:00 a.m. NEXT DOSE DUE: DATE:06-08-15 TIME: 5:00 p.m. Multi-Vitamin Daily (Multivitamin) 1 Each Tablet 1 Each PO DAILY LAST DOSE GIVEN:06-07-15 DATE: 9:00 a.m. NEXT DOSE DUE: DATE:06-08-15 TIME:9:00 a.m. Roxicodone (Oxycodone Hcl) 30 Mg Tablet 30 Mg PO PRN Q4HRS PRN Not taken while in hosp. May resume at home as needed as directed for pain. Cozaar (Losartan Potassium) 100 Mg Tablet 100 Mg PO DAILY LAST DOSE GIVEN: DATE:06-07-15 TIME:9:00 a.m. NEXT DOSE DUE: DATE:06-08-15 TIME:9:00 a.m. Vitals/I & O Vital Sign - Last 24 Hours 01/25/17 01/25/17 01/25/17 01/25/17 10:57 11:38 11:56 15:10 Temp 97.5 98.1 97.5 98.1 Pulse 99 99 79 Resp 18 20 20 B/P 143/69 143/69 137/83 Pulse Ox 98 99 O2 Delivery Room Air Room Air Room Air 01/25/17 01/25/17 01/25/17 01/25/17 18:20 19:30 19:52 20:00 Temp 98.1 98.1 Pulse 84 Resp 20 20 20 B/P 154/76 Pulse Ox 93 93 O2 Delivery Room Air Room Air Room Air Room Air 01/25/17 01/26/17 01/26/17 23:09 03:44 06:35 Temp 97.6 97.7 97.5 97.6 97.7 97.5 Pulse 82 80 82 Resp 20 18 18 B/P 136/78 142/88 156/86 Pulse Ox 93 99 95 O2 Delivery Room Air Room Air Room Air Intake and Output 01/25/17 01/25/17 01/26/17 15:00 23:00 07:00 Intake Total 650 ml Balance 650 ml Ericka MERRITT MD Jan 26, 2017 08:45
[2017-01-26] MEDS: NICOTINE 14MG PATCH. TD SCH (09:00)
[2017-01-26] MEDS: ASPIRIN ENTERIC COATED 81 MG TABLET.DR. PO SCH (09:00)
[2017-01-26] MEDS ORDERED: FAMOTIDINE 20 MG TABLET. PO SCH (09:00)
[2017-01-26] MEDS: OXYCODONE IR 30 MG TABLET. PO PRN ×2 (09:15→18:27)
[2017-01-26] MEDS: LOSARTAN POTASSIUM 50 MG TABLET. PO SCH (09:16)
[2017-01-26] MEDS: LUBIPROSTONE 8 MCG CAPSULE PO SCH ×2 (09:16→17:50)
[2017-01-26] MEDS: ALLOPURINOL 300 MG TABLET. PO SCH (09:16)
[2017-01-26] MEDS: GUAIFENESIN ER 600 MG TABLET.ER PO SCH (09:17)
--- NOTE | 2017-01-26 10:30 | PDOC ---
MODERATE SEDATION ASSESSMENT RISKS/ALTERNATIVES Risks/Alternatives Risks and alternatives of this type of sedation and procedure discussed with: RISK/ALTERNATIVES: Patient H & P ON CHART H & P H & P on chart and reviewed for co-morbid conditions and appropriate labs. H&P ON CHART: Yes STATUS PREG STATUS ASSESSED: N/A MEDS/ALLERGIES REVIEWED Meds/Allergies Reviewed Medications and Allergies including time and route of recently administered narcotics and sedatives. MEDS/ALLERGIES REVIEWED: Yes ASA RATING ASA RATING: II AIRWAY ASSESSMENT Airway Assessment Airway patency, oral function limitations, presence of caps, crowns, dentures, partials, and ability to extend neck assessed. AIRWAY ASSESSMENT: Yes MALLAMPATI SCORE MALLAMPATI SCORE: II PRE-SEDATION ASSESSMENT PRE-SEDATION ASSESSMENT: Yes ILSA ALVAREZ MD Jan 26, 2017 10:30
[2017-01-26] MEDS ORDERED: FENTANYL PF 100 MCG/2 ML VIAL. ONE (10:41)
[2017-01-26] MEDS ORDERED: NITROGLYCERIN 200 MCG/2 ML SYRINGE FOR CATH/VASC LAB. ONE (10:41)
[2017-01-26] MEDS ORDERED: MIDAZOLAM HCL/PF 5 MG/5 ML VIAL ONE (10:41)
[2017-01-26] MEDS ORDERED: VERAPAMIL 5 MG/2 ML VIAL. ONE (10:41)
[2017-01-26] MEDS ORDERED: HEPARIN for IV BOLUS 10,000 UNIT/10 ML VIAL. ONE (10:42)
[2017-01-26] MEDS ORDERED: MIDAZOLAM HCL/PF 5 MG/5 ML VIAL IV ONE (10:45)
[2017-01-26] MEDS ORDERED: FENTANYL PF 100 MCG/2 ML VIAL. IV ONE (10:45)
[2017-01-26] MEDS ORDERED: NITROGLYCERIN 200 MCG/2 ML SYRINGE FOR CATH/VASC LAB. IART ONE (11:00)
[2017-01-26] MEDS ORDERED: LIDOCAINE 2% 20 ML VIAL. IJ ONE (11:00)
[2017-01-26] MEDS ORDERED: VERAPAMIL 5 MG/2 ML VIAL. IART ONE (11:00)
[2017-01-26] MEDS ORDERED: HEPARIN for IV BOLUS 10,000 UNIT/10 ML VIAL. IART ONE (11:00)
[2017-01-26] MEDS ORDERED: IOHEXOL 300 MG/ML 100ML VIAL. IART ONE (11:00)
[2017-01-26] MEDS: IPRATRPIUM/ALBUTEROL 0.5/2.5MG 3 ML NEBU. NEB SCH ×2 (12:30→15:47)
[2017-01-26] MEDS: CALCIUM CARB/VIT D3 500/200 TABLET PO SCH ×2 (12:39→17:50)
[2017-01-26] MEDS: MULTIVITAMIN with MINERAL TABLET. PO SCH (12:39)
[2017-01-26] MEDS: OMEGA-3 FATTY ACIDS/FISH OIL 1,000 MG CAPSULE. PO SCH (12:39)
--- NOTE | 2017-01-26 12:44 | RAD ---
APPROVED REPORT Test Type: Pharmacological Stress Nurse/Tech: Matt Butts RN Test Indications: SOA Cardiac History: see ehr Medications: see ehr Medical History: see ehr Resting ECG: SR Resting Heart Rate: 81 bpm Resting Blood Pressure: 159/79mmHg Pretest Chest Pain: None Nurse/Tech Notes Lungs CTA, S1, S2 Consent: The procedure was explained to the patient in lay terms. Informed consent was witnessed. James eout was entered into [employer]. History and Stress Test performed by Syl KennedyNKarissa Pharm. Details Pharmacologic stress testing was performed using 0.4mg per 5ml of regadenoson given intravenously ove r 7-10 seconds. Stress Symptoms No chest pain or symptoms. POST EXERCISE Reason for Termination: Infusion complete Max HR: 98 bpm Max Blood Pressure: 156/78mmHg Blood Pressure response to exercise: Normal blood pressure response during stress. Chest Pain: No. Arrhythmia: No. ST Change: No. INTERPRETATION Stress EKG Conclusion: Baseline EKG showed sinus rhythm. No ischemic changes at peak stress. No arr hythmias. Imaging Protocol IMAGE PROTOCOL: Rest Tc-99m/stress Tc-99m 2 days Rest: Stress: Viability: Radiopharm.Tc99m [id number] Sestamibi Euit24pUj 35mCi Img Date 01/24/2017 01/25/2017 Inj-Img [id number]. 30min. Rest Admin Site:IV - Left AntecubitalAdministrator:NANETTE Hillman, ARRT (R)(N) Stress Admin Site: IV - Left AntecubitalAdministrator: NANETTE Hillman, ARRT (R)(N) STRESS DATA End Diast. Vol.202.0mlAv. Heart Rate83.0bpm End Syst. Vol.72.0mlCO Index BSA0.0L/min Myocardial Ifcs506.0gEject. Jligrhyb86.0% Stress Rates Pk. Fill Rate2.09EDV/secLVtime Pk. Fill 181.27msec Pk. Empty Rate2.83ESV/secLVtime Pk. Nkopb329.52msec 12/02 Pk. Fill1.04EDV/sec Stress Scores Regional WT0.00Summed WT3.00 Regional WM0.00Summed WM8.00 Lung uptake was Normal. Left Ventricular ejection fraction is 64%. LV Perfusion Scintigraphic images showed diaphragmatic attenuation artifact but there appears to be underlying sma ll reversible defect consistent with ischemia. There is transient ischemic dilatation seen in the stress images. Wall Motion Normal regional wall motion. LV Perf. Quant 17 Seg. SSS8.00 17 Seg. SRS3.00 17 Seg. SDS6.00 Stress Defect Extent (% LAD)2.50Rest Defect Extent (% LAD)0.00Rev. Defect Extent (% LAD)0.00 Stress Defect Extent (% LCX) 10.00Rest Defect Extent (% LCX)0.00Rev. Defect Extent (% LCX)3.80 Stress Defect Extent (% RCA)25.60Rest Defect Extent (% RCA)15.60Rev. Defect Extent (% RCA)11.10 Stress Defect Extent (% DANYEL)10.40Rest Defect Extent (% DANYEL)3.00Rev. Defect Extent (% DANYEL)4.60 Conclusion 1. Regadenoson cardioisotope stress test showed diaphragmatic attenuation artifact with possible smal l underlying ischemia. 2. Since this is associated with transient ischemic dilatation, I would recommend cardiac catheteriza tion for more definitive evaluation. 3. Normal left ventricular systolic function with ejection fraction calculated at 64%.
--- NOTE | 2017-01-26 14:11 | CARD ---
APPROVED REPORT Procedure(s) performed: Left heart catheterization, selective coronary angiography and left ventricul ography via right transradial approach. INDICATION The indication(s) include : positive stress test, unstable angina . PROCEDURE NARRATIVE After explaining the risks, benefits and alternative options, informed consent was obtained from cj ent. Patient was brought to the cardiac Mixer Lever Operator and right wrist was prepped and draped in the usual fashion after confirming a positive modified Austin's test. Arterial access was obtained in the [facility] radial artery and a 6 English sheath was inserted. 6 English JL3.5 and Stephane catheters were used to perform selective angiography of the left and right coronary arteries. 6 English pigtail catheter wa s used to perform left ventriculography. Patient tolerated the procedure well. Hemostasis was achie chandrakant using TR band. There were no immediate complications. The following findings were noted. FINDINGS 1. Hemodynamics: Left ventricular end-diastolic pressure of 20 mmHg. No pullback gradient across th e aortic valve. 2. Left ventriculography: Posterobasal wall hypokinesis with ejection fraction estimated at 55%. N o significant mitral regurgitation seen. 3. Coronary angiography: a. The left main coronary artery arose from the left sinus of Valsalva, gave rise to the left anteri or descending and left circumflex arteries and did not show any significant stenosis. b. The left anterior descending artery showed patent stent in mid segment. The first diagonal branc h showed 40% stenosis in mid segment. c. The left circumflex artery appeared to show a patent in mid segment with 40-50% stenosis just dis dayo to the stent. d. The right coronary artery was a large and dominant vessel arising from the right sinus of Valsalv a that showed long and 100% chronic total occlusion in proximal and mid segments with distal reconsti tution from left to right collaterals. Conclusion 1. 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 The p reviously placed stents in left anterior descending and left circumflex arteries were patent. 40-50% stenosis noted in left circumflex artery. 2. Posterobasal wall hypokinesis with ejection fraction estimated at 55%. Recommendations Optimization of medical therapy. If symptoms continue, we will consider percutaneous intervention on the chronic total occlusion of right coronary artery.
[2017-01-26] MEDS ORDERED: IV 1/2 NORMAL SALINE 1,000 ML IV SCH (14:14)
[2017-01-26] MEDS ORDERED: EZETIMIBE 10 MG TABLET PO SCH (21:00)
== END 2017-01-26 18:55 | disposition home or self-care (01) | DRG 287 ==
LOC: ER 12:08 → 2 SOUTH 15:38
PROVIDERS: ADMIT Family Medicine; ATTEND Family Medicine
PROC: 4A023N7 Measurement of Cardiac Sampling and Pressure, Left Heart, Percutaneous Approach (ICD-10-PCS; principal; 2017-01-26)
PROC: B2111ZZ Fluoroscopy of Multiple Coronary Arteries using Low Osmolar Contrast (ICD-10-PCS; 2017-01-26)
PROC: B2151ZZ Fluoroscopy of Left Heart using Low Osmolar Contrast (ICD-10-PCS; 2017-01-26)
DX: I25.110 Atherosclerotic heart disease of native coronary artery with unstable angina pectoris (principal); Z68.41 Body mass index [BMI] 40.0-44.9, adult; E11.22 Type 2 diabetes mellitus with diabetic chronic kidney disease; E66.01 Morbid (severe) obesity due to excess calories; E78.5 Hyperlipidemia, unspecified; F17.210 Nicotine dependence, cigarettes, uncomplicated; I12.9 Hypertensive chronic kidney disease with stage 1 through stage 4 chronic kidney disease, or unspecified chronic kidney disease; K21.9 Gastro-esophageal reflux disease without esophagitis; M10.9 Gout, unspecified; N18.3 Chronic kidney disease, stage 3 (moderate); Z96.652 Presence of left artificial knee joint; G89.29 Other chronic pain; M54.9 Dorsalgia, unspecified; M19.90 Unspecified osteoarthritis, unspecified site; N40.0 Benign prostatic hyperplasia without lower urinary tract symptoms; Z98.49 Cataract extraction status, unspecified eye; Z95.5 Presence of coronary angioplasty implant and graft; Z82.49 Family history of ischemic heart disease and other diseases of the circulatory system
CPT/HCPCS: 36415; 71010; 71275; 78452; 80048; 80053; 80061; 81001; 82947; 83036; 83690; 83880; 84443; 84484; 85007; 85027; 85379; 85610; 85730; 93005; 93017; 93306; 93458; 94640; 96374; 96375; 96376; A9500; C1769; C1892; J1815; J2250; J2785; J3010; J3490; J7030; J7620; Q0163; Q9967; 99285-25

== ENCOUNTER → 2020-01-27 | Outpatient (CLI) | payer MEDICARE ==
[2017-01-26 15:00] VITALS: BP 150/72
[~2020-01-27] MED LIST changes: +ALLO300T PO; +ASPI-482 PO; +EZET10TA20 PO; -EZET10TA3 PO; -GLIM1TAB2 PO; +GLIM1TAB7 PO; +GLUCOSAMINE 1,1 EACH PO; -HYDR-2762 PO; +HYDR-2765 PO; +METF500T16 PO; -METO200T3 PO; +METO200T46 PO; +OMEG-168 PO; -OMEG1CAP61 PO; +WARF-78 PO; -WARF5TAB PO
--- NOTE | 2020-01-27 11:47 | RAD ---
MRI Lumbar Spine without contrast History: Chronic low back pain with worsening bilateral leg radiculopathy Technique: Multiplanar, multi sequential noncontrast MR imaging was performed of the lumbar spine. Comparison: April 12, 2015 Findings: There is some motion. Lumbar vertebral body stature is overall maintained. There is minimal grade 1 anterior spondylolisthesis at L4-5. There is mild degenerative disc disease at L4-5 greater in interval, other mild disc desiccation throughout lumbar spine. There are posterior annular tears L1-2, L2-3, and L5-S1 as seen previously. Conus terminates near T12-L1. There is mild aneurysmal dilatation infrarenal abdominal aorta up to about 3 cm, somewhat increased. L1-L2: Neural foramina and spinal canal are adequate, this level not included on the axial images. L2-L3: There is mild buckling of the ligamentum flavum and facet hypertrophic change. Neural foramina are adequate. Spinal canal is overall adequate. L3-L4: There is again facet degenerative change and mild buckling of the ligamentum flavum. Neural foramina and spinal canal are overall adequate. L4-L5: There is again moderate facet hypertrophic change and mild buckling of the ligamentum flavum. There is again minimal disc osteophyte complex. Spinal canal is not significantly narrowed. Disc osteophyte complex again contributes to mild narrowing of the left neural foramen, very mild narrowing on the right. L5-S1: There is mild buckling of the ligamentum flavum and facet degenerative change. Spinal canal is not significantly narrowed, mild narrowing of the far lateral recesses from posteriorly on developmental basis. Neural foramina are overall adequate. Impression: 1. Mild L4-5 degenerative disc disease has progressed in the interval, also very minimal grade 1 anterior spondylolisthesis at this level. There is mild spondylosis. There is mild L4-5 neural foramina compromise bilaterally. There is no new significant lumbar spinal stenosis. 2. There is mild aneurysmal dilatation of the infrarenal abdominal aorta about 3 cm. Electronically signed by: Ventura Esteves MD (01/27/2020 11:44 AM) [id number]
== END | disposition home or self-care (01) ==
LOC: MRI 10:04
PROVIDERS: ATTEND Family Medicine
DX: M43.16 Spondylolisthesis, lumbar region (principal); M51.36 Other intervertebral disc degeneration, lumbar region; M25.78 Osteophyte, vertebrae; M47.817 Spondylosis without myelopathy or radiculopathy, lumbosacral region; M48.07 Spinal stenosis, lumbosacral region; I71.4 Abdominal aortic aneurysm, without rupture
CPT/HCPCS: 72148

== ENCOUNTER → 2020-08-29 | Outpatient (CLI) | payer MEDICARE ==
[2017-01-26 15:00] VITALS: BP 150/72
[~2020-08-29] MED LIST changes: +AMLO5TAB10 PO; +IOHEXOL 180 MG/ML 10 ML VIAL. ONE; +LORA10TA3 PO; +MELO15TA23 PO; +METO100T7 PO; +SIMV20TA18 PO; +TRIA1CAP3 PO; -WARF-78 PO; +WARF5TAB2 PO; +methylPREDNISolone ACETATE 40 MG/ML VIAL. ONE; +methylPREDNISolone ACETATE 80 MG/ML VIAL. ONE
--- NOTE | 2020-08-29 14:40 | PDOC1 ---
INITIAL PAIN CONSULT DATE OF SERVICE: DOS: DATE: 08/29/20 TIME: 14:32 CHIEF COMPLAINT: Chief Complaint: Low back and left lower extremity pain HISTORY OF PRESENT ILLNESS: 75-year-old male presents with history of pain low back left lower extremity for about 8 years not the result of any specific injury or accident that he is aware but very painful getting worse over the past year or so patient is tried chiro practic treatments once physical therapy which is helpful but only for about a day or 2 by his report patient still seeing chiropractic treatment about once to twice a week which again is temporarily helpful but not reducing the pain completely. Patient reports the pain is in the low back rating to left posterior gluteus posterior lateral thigh lateral anterior thigh and into the anterior medial lower leg as well on the left side with some pain in the knee as well from previous knee replacement. Patient describes the pain is sharp and stabbing throbbing intermittent intensity worse with walking standing changing positions and aching across the low back better with sitting or laying down but does awaken from sleep at night about once or twice every evening reports he is using a cane and a walker he has a cane with him today and is using in his right hand also reports it can decrease his sensitivity from urinary frequency but no incontinence. Patient is tried oxycodone which he took this morning 30 mg which does decrease the pain by about 50% but is not long-lasting. Patient rates his disability rating 0-10 10 being the worst as a 10 with family home responsibilities recreation social activity sexual behavior occupation self-care and 9 with life support activities. 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 Patient reports no loss of motor function but significant fatigability left lower extremity with standing walking and changing positions. PAST MEDICAL HISTORY: PMH: Hypertension, shortness of breath, type 2 diabetes, arthritis, coronary artery disease, benign prostatic hypertrophy, depression PREVIOUS SURGERIES: Past Surgical Hx: Left total knee replacement 2015, cataract extraction 2015 ;cardiac stent placed 2006 CURRENT MEDICATIONS: Current Meds: Active Scripts Medications Dose Route/Sig Max Daily Dose Days Date Category Dose Instructions Allopurinol 300 Mg Tablet 1 Tab PO DAILY 01/23/17 Reported Metformin Hcl 500 Mg Tablet 1 Tab PO DAILY 01/23/17 Reported Aspir 81 (Aspirin) 81 Mg Tablet.dr 1 Tab PO DAILY 01/23/17 Reported Glucosamine 1,500 Complex Cp (Gluc Adorno/Chondro Adorno A/Vit C/Mn) 1 Each Capsule 1 Each PO BID 01/23/17 Reported Glimepiride 1 Mg Tablet 1 Mg PO DAILY 05/17/15 Reported LAST DOSE GIVEN: DATE:06-07-15 TIME:9:00 a.m. NEXT DOSE DUE: DATE:06-08-15 TIME:9:00 a.m. Benadryl (Diphenhydramine Hcl) 25 Mg Capsule 25 Mg PO PRN BID PRN 05/17/15 Reported LAST DOSE GIVEN: DATE:06-06-15 TIME:10:40 a.m. NEXT DOSE DUE: DATE:06-07-15 TIME:any time as needed for allergies Fish Oil 1,200 Mg Softgel (Exmore-3S/Dha/Epa/Fish Oil) 1 Each Capsule 1 Each PO DAILY 05/17/15 Reported LAST DOSE GIVEN: DATE:06-07-15 TIME:9:00 a.m. NEXT DOSE DUE: DATE:06-08-15 TIME:9:00 a.m. Caltrate 600 + D Tablet (Calcium Carbonate/Vitamin D3) 1 Each Tablet 1 Each PO BID 05/17/15 Reported LAST DOSE GIVEN: DATE:06-07-15 TIME:9:00 a.m. NEXT DOSE DUE: DATE:06-08-15 TIME: 5:00 p.m. Multi-Vitamin Daily (Multivitamin) 1 Each Tablet 1 Each PO DAILY 05/17/15 Reported LAST DOSE GIVEN:06-07-15 DATE: 9:00 a.m. NEXT DOSE DUE: DATE:06-08-15 TIME:9:00 a.m. Roxicodone (Oxycodone Hcl) 30 Mg Tablet 30 Mg PO PRN Q4HRS PRN 05/17/15 Reported Not taken while in hosp. May resume at home as needed as directed for pain. Cozaar (Losartan Potassium) 100 Mg Tablet 100 Mg PO DAILY 05/17/15 Reported LAST DOSE GIVEN: DATE:06-07-15 TIME:9:00 a.m. NEXT DOSE DUE: DATE:06-08-15 TIME:9:00 a.m. ALLERGIES; Allergies: Coded Allergies: No Known Drug Allergies (Unverified , 06/05/15) FAMILY HISTORY: Family Hx: No major medical problems or conditions he is aware of SOCIAL HISTORY: Social Hx: Patient drinks about 2 alcoholic drinks a month smokes cigarettes and has for about 50 years less than a pack a day, patient is currently retired lives locally in [facility] REVIEW OF SYSTEMS: ROS: Positive for those items mentioned in history of present illness, all systems are reviewed, otherwise negative, is complete full and well-documented on patient's chart PHYSICAL EXAM: VS: Blood pressure is 129/50 pulse 86 respiration 16 temperature 97.9 F height is 6 foot weight is 314 pounds PE: PHYSICAL EXAMINATION: GENERAL: The patient is awake, alert, oriented, appropriate, very pleasant demeanor HEENT: Shows normocephalic, atraumatic. Extraocular movements are intact and symmetrical. Oral cavity: Mucous membranes moist and pink. Dentition is intact . NECK: Shows anterior throat supple without palpable lymphadenopathy noted. Swallow reflex symmetrical. CHEST: Shows normal on inspection. Breath sounds are clear bilaterally, no rales rhonchi or wheezes auscultated. HEART: Shows S1, S2 clear. No murmurs auscultated. ABDOMEN: Soft, nontender, nondistended, obese. No palpable organomegaly is noted. No rebound or guarding demonstrated. BACK: Shows spine grossly in the midline. Normal-appearing cervical lordotic curvature. There is slightly increased thoracic kyphosis, some minor flattening of the lumbar lordotic curvature. Lumbar paraspinous muscles show symmetrical on inspection, on palpation shows some moderate tenderness diffusely throughout the upper, middle and lower distribution of the paraspinous muscles bilaterally, but without specific trigger points, without radiation of pain. The patient has good rotational motion of the lumbar spine, both laterally as well as extension and flexion without significant difficulty. No tenderness over the spinous processes, sacrum or sacroiliac regions. EXTREMITIES: Lower extremities show deep tendon reflexes 1+ in the patellar and tendo calcaneus tendons. Motor exam is 5 on a scale of 5 with right dorsiflexion, extension, quadriceps and hamstring flexion and 4/5 on the left. Peripheral pulses are 1+ posterior tibial. No peripheral edema is noted bilaterally. Lower extremities are warm and dry to touch, equal in color and appearance. Straight leg raise noted to be negative on the right , left side is mildly positive at approximately 45 degrees decreased with knee flexion. Gaenslen's and Herber's maneuvers are negative bilaterally as well. The patient is able to stand, stand on her toes but loses balance quickly put all of his weight on his left lower extremity walks with a shuffling gait does appear to favor the left lower extremity fairly significantly using a cane to ambulate in his right hand. SKIN: Shows warm and dry, good turgor. No edema. No sores, rashes or bruising throughout. IMPRESSION: Impression: 75-year-old male with history low back left lower extremity pain worse over the past year MRI scan lumbar spine as noted Arthritis Diabetes Hypertension Coronary artery disease Plan: Options were discussed with the patient patient spouse who accompanied him his visit today including conservative medical management physical therapies interventional techniques. He like to pursue interventional techniques, we discussed a lumbar epidural steroid injection using description as well as anatomical model to describe the procedure. Risks were discussed including but not limited to: Bleeding, infection, possibility of epidural hematoma and subsequent neurological compromise, dural puncture, headaches, spinal cord and/or nerve damage, side effects of steroid medication, and poor results regarding pain control. Patient understands wished to proceed. Patient will return to clinic in approximate 2 weeks for follow-up. Was counseled as return appointment activity level and side effects to be aware. Procedure is lumbar epidural steroid injection under local anesthetic using sterile prep and drape at the L4-5 level using C-arm fluoroscopic guidance in both AP and lateral views medications injected is 120 mg Depo-Medrol + 10 mL preservative-free normal saline and 2 mL contrast- condition at discharge is stable patient tolerated procedure well had no complications. GEETHA JAEMS MD Aug 29, 2020 14:40
== END | disposition home or self-care (01) ==
LOC: PNCL 12:44
PROVIDERS: ATTEND Anesthesiology
DX: M54.5 Low back pain (principal); M79.605 Pain in left leg; I10 Essential (primary) hypertension; E11.9 Type 2 diabetes mellitus without complications; I25.10 Atherosclerotic heart disease of native coronary artery without angina pectoris; M19.90 Unspecified osteoarthritis, unspecified site; F32.9 Major depressive disorder, single episode, unspecified; N40.0 Benign prostatic hyperplasia without lower urinary tract symptoms; Z98.890 Other specified postprocedural states; Z79.82 Long term (current) use of aspirin; Z79.899 Other long term (current) drug therapy; Z79.84 Long term (current) use of oral hypoglycemic drugs; Z83.3 Family history of diabetes mellitus
CPT/HCPCS: 62323; J1030; J1040; Q9965

== ENCOUNTER → 2020-09-12 | Outpatient (CLI) | payer MEDICARE ==
[2017-01-26 15:00] VITALS: BP 150/72
[~2020-09-12] MED LIST changes: +AMLO-186 PO; -AMLO5TAB10 PO
--- NOTE | 2020-09-12 14:10 | PDOC ---
Progress Note - Pain Clinic Date of Service: DOS: DATE: 09/12/20 TIME: 14:07 Diagnosis: Dx: Lumbar radiculopathy with lumbar degenerative disease and lumbar spondylosis History or Present Illness: HPI: 75-year-old male returns follow-up status post lumbar epidural steroid injection x1. Patient reports about 80% improvement for the first week then the pain returning the low back pain and left lower extremity posterior gluteus posterior lateral thigh lateral anterior thigh some on the right as well. Patient reports the first week he was doing much better increase his activity walking doing household activities greater ease and comfort walking without his cane and with greater ease as well. Patient reports no new motor or sensory deficits no new bowel or bladder incontinence or other complaints. Patient scribes pain is aching and radiating in the low back and lower extremities with some shooting p ain as well again significantly reduced but returning over the past week. Patient rates his pain is a 10 on scale 10 is worse over the past week 8 on average 5 its least and is an 8 today. Physical Exam: VS: Blood pressure is 163/92 pulse 96 respirations 18 temperature is 98.7 F weight is 320 pounds PE: PHYSICAL EXAMINATION: GENERAL: The patient is awake, alert, oriented, appropriate, very pleasant demeanor HEENT: Shows normocephalic, atraumatic. Extraocular movements are intact and symmetrical. Oral cavity: Mucous membranes moist and pink. NECK: Shows anterior throat supple without palpable lymphadenopathy noted. Swallow reflex symmetrical. CHEST: Shows normal on inspection. Breath sounds are clear bilaterally. HEART: Shows S1, S2 clear. No murmurs auscultated. ABDOMEN: Soft, nontender, nondistended, obese. No palpable organomegaly is noted. No rebound or guarding demonstrated. BACK: Shows spine grossly in the midline. Normal-appearing cervical lordotic curvature. There is slightly increased thoracic kyphosis, some minor flattening of the lumbar lordotic curvature. Lumbar paraspinous muscles show symmetrical on inspection, on palpation shows some moderate tenderness diffusely throughout the upper, middle and lower distribution of the paraspinous muscles bilaterally, but without specific trigger points, without radiation of pain. The patient has good rotational motion of the lumbar spine, both laterally as well as extension and flexion without significant difficulty. No tenderness over the spinous processes, sacrum or sacroiliac regions. EXTREMITIES: Lower extremities show deep tendon reflexes 1+ in the patellar and tendo calcaneus tendons. Motor exam is 5 on a scale of 5 with right dorsifl exion, extension, quadriceps and hamstring flexion and 4/5 on the left. Peripheral pulses are 1+ posterior tibial. No peripheral edema is noted bilaterally. Lower extremities are warm and dry to touch, equal in color and appearance. SKIN: Shows warm and dry, good turgor. No edema. No sores, rashes or bruising throughout. Procedure: Procedure: Options were discussed with the patient. Patient's old chart was reviewed his his current medication regimen updated current review of systems updated today as well. We will proceed with a second in the series lumbar epidural to injection today with fluoroscopic guidance. Risks were discussed including but not limited to: Bleeding, infection, possibility of epidural hematoma and subsequent neurological compromise, dural puncture, headaches, spinal cord and/or nerve damage, side effects of steroid medication, and poor results regarding pain control. Patient understands wished to proceed. Patient will return to the clinic in approximately 2 weeks for follow-up, was counseled as to return appointment activity level and side effects to be aware of. Medication Injected: Med Injected: Procedure is lumbar epidural steroid injection under local anesthetic using sterile prep and drape at the L4-5 level using C-arm fluoroscopic guidance in both AP and lateral views medications injected is 120 mg Depo-Medrol + 10 mL preservative-free normal saline and 2 mL contrast- condition at discharge is stable patient tolerated procedure well had no complications. Condition at Discharge: Condition at Discharge: Condition at discharge is stable patient tolerated the procedure well and had no complications. GEETHA JAMES MD Sep 12, 2020 14:10
== END ==
LOC: PNCL 13:23
PROVIDERS: ATTEND Anesthesiology
DX: M51.16 Intervertebral disc disorders with radiculopathy, lumbar region (principal); M47.26 Other spondylosis with radiculopathy, lumbar region; I10 Essential (primary) hypertension; E11.9 Type 2 diabetes mellitus without complications; F32.9 Major depressive disorder, single episode, unspecified; F17.210 Nicotine dependence, cigarettes, uncomplicated; Z79.82 Long term (current) use of aspirin; Z79.899 Other long term (current) drug therapy; Z83.3 Family history of diabetes mellitus; Z79.84 Long term (current) use of oral hypoglycemic drugs
CPT/HCPCS: 62323; J1030; J1040; Q9965

== ENCOUNTER → 2020-10-30 | Outpatient (CLI) | payer MEDICARE ==
[2017-01-26 15:00] VITALS: BP 150/72
--- NOTE | 2020-10-30 13:43 | PDOC ---
Progress Note - Pain Clinic Date of Service: DOS: DATE: 10/30/20 TIME: 13:39 Diagnosis: Dx: Lumbar radiculopathy with lumbar degenerative disease and lumbar spondylosis History or Present Illness: HPI: 75-year-old male returns follow-up status post lumbar epidural steroid injections x2. Patient most recently seen September 12, 2020 did very well after last injection of 60% or better patient reports the pain is returning down the low back and left lower extremity posterior gluteus posterior lateral thigh lateral anterior thigh anterior medial thigh as well as some in the posterior calf patient reports is a 10 on scale 10 is worse over the past week 7 on average 4-5 its least and is a 7 today. Patient ports is aching and stabbing radiating can be constant severe worse with walking standing changing positions better with sitting or laying down. Patient reports no new motor or sensory deficits no new bowel or bladder incontinence other complaints reports is wakes him sleep only very rarely. Patient also reports of significant knee pain on the left knee after surgery which is also very troubling and causing him to walk imbalance as well. Physical Exam: VS: Blood pressure is 124/76 pulse 99 respirations 18 temperature 98.3 F height is 6 foot weight is 317 pounds PE: PHYSICAL EXAMINATION: GENERAL: The patient is awake, alert, oriented, appropriate, very pleasant demeanor HEENT: Shows normocephalic, atraumatic. Extraocular movements are intact and symmetrical. NECK: Shows anterior throat supple without palpable lymphadenopathy noted. Swallow reflex symmetrical. CHEST: Shows normal on inspection. Breath sounds are clear bilaterally, no rales rhonchi or wheezes. HEART: Shows S1, S2 clear. No murmurs auscultated. ABDOMEN: Soft, nontender, nondistended, obese. No palpable organomegaly is noted. No rebound or guarding demonstrated. BACK: Shows spine grossly in the midline. Normal-appearing cervical lordotic curvature. There is slightly increased thoracic kyphosis, some minor flattening of the lumbar lordotic curvature. Lumbar paraspinous muscles show symmetrical on inspection, on palpation shows some moderate tenderness diffusely throughout the upper, middle and lower distribution of the paraspinous muscles, without specific trigger points, without radiation of pain. The patient has good rotational motion of the lumbar spine, both laterally as well as extension and flexion without significant difficulty. No tenderness over the spinous processes, sacrum or sacroiliac regions. EXTREMITIES: Lower extremities show deep tendon reflexes 1+ in the patellar and tendo calcaneus tendons. Motor exam is 5 on a scale of 5 with right dorsiflexion, extension, quadriceps and hamstring flexion and 4/5 on the left. Peripheral pulses are 1+ posterior tibial. No peripheral edema is noted bilaterally. Lower extremities are warm and dry to touch, equal in color and a ppearance. SKIN: Shows warm and dry, good turgor. No edema. No sores, rashes or bruising throughout. Procedure: Procedure: Options were discussed with the patient. Patient chart was reviewed his his current medication regimen updated current review of systems updated today as well. We will proceed with a third in the series lumbar epidural steroid injection today with fluoroscopic guidance. Risks were discussed including but not limited to: Bleeding, infection, possibility of epidural hematoma and subsequent neurological compromise, dural puncture, headaches, spinal cord and/or nerve damage, side effects of steroid medication, and poor results regarding pain control. Patient understands wished to proceed. Patient return to clinic in approximately 1 week for follow-up was counseled as to return appointment activity level and side effects to be aware of. Medication Injected: Med Injected: Procedure is lumbar epidural steroid injection under local anesthetic using sterile prep and drape at the L4-5 level using C-arm fluoroscopic guidance in both AP and lateral views medications injected is 120 mg Depo-Medrol + 10 mL preservative-free normal saline and 2 mL contrast- condition at discharge is stable patient tolerated procedure well had no complications. Condition at Discharge: Condition at Discharge: Condition at discharge is stable, patient tolerated procedure well and had no complications. GEETHA JAMES MD Oct 30, 2020 13:43
== END | disposition home or self-care (01) ==
LOC: PNCL 13:07
PROVIDERS: ATTEND Anesthesiology
DX: M51.16 Intervertebral disc disorders with radiculopathy, lumbar region (principal); M47.26 Other spondylosis with radiculopathy, lumbar region; I25.10 Atherosclerotic heart disease of native coronary artery without angina pectoris; E78.00 Pure hypercholesterolemia, unspecified; E03.9 Hypothyroidism, unspecified; I10 Essential (primary) hypertension; M19.90 Unspecified osteoarthritis, unspecified site; E11.9 Type 2 diabetes mellitus without complications; M10.9 Gout, unspecified; N40.0 Benign prostatic hyperplasia without lower urinary tract symptoms; F17.210 Nicotine dependence, cigarettes, uncomplicated; Z79.82 Long term (current) use of aspirin; Z79.84 Long term (current) use of oral hypoglycemic drugs; Z79.899 Other long term (current) drug therapy; Z98.890 Other specified postprocedural states; Z82.49 Family history of ischemic heart disease and other diseases of the circulatory system; Z83.3 Family history of diabetes mellitus
CPT/HCPCS: 62323; J1030; J1040; Q9965

== ENCOUNTER → 2021-05-30 | Outpatient (CLI) | payer MEDICARE, OTHER ==
[2017-01-26 15:00] VITALS: BP 150/72
[~2021-05-30] MED LIST changes: -IOHEXOL 180 MG/ML 10 ML VIAL. ONE; -methylPREDNISolone ACETATE 40 MG/ML VIAL. ONE; -methylPREDNISolone ACETATE 80 MG/ML VIAL. ONE
--- NOTE | 2021-05-30 16:32 | RAD ---
EXAM: Renal sonogram. HISTORY: Renal failure. TECHNIQUE: Sonographic imaging of the kidneys and bladder was performed. COMPARISON: None. FINDINGS: The right kidney is decreased in size relative to the left kidney. This remains within norm al limits. There is echogenic renal parenchyma. There are multiple simple appearing renal cysts, the largest of which measures 2.7 cm on the left. There is no hydronephrosis. The bladder is decompressed . The exam is limited due to bowel gas and body habitus. IMPRESSION: 1. Echogenic renal parenchyma. This can be seen with medical renal disease. 2. Simple appearing left renal cysts. Follow-up is not routinely performed for simple cysts. Electronically signed by: Stacie Collier MD (05/30/2021 4:30 PM) [id number]
== END ==
LOC: US 15:44
PROVIDERS: ATTEND Internal Medicine Nephrology
DX: N17.9 Acute kidney failure, unspecified (principal)
CPT/HCPCS: 76770